=== PATIENT | female | born 1990 | race African-American/Black ===

== ENCOUNTER 2021-05-17 21:39 | Emergency (ER) | payer BC, SELFPAY ==
[2021-05-17 21:41] VITALS: BP 119/83; PULSE 98; RESP 18; TEMP 36.7; O2SAT 99
--- NOTE | 2021-05-17 22:02 | ED.GENADULT ---
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 Patient states symptoms began approximately 30 minutes ago with light vaginal bleeding she states she is approximately 9 weeks and is followed by Dr. Colton Morales in [place] states she had an ultrasound last week at [facility] that showed intrauterine she denies any abdominal pain she denies any fevers or chills nausea vomiting or any other symptoms. Patient is G1, P0 patient states that bleeding occurred after sexual intercourse Related Data Allergies Allergy/AdvReac Type Severity Reaction Status Date / Time No Known Allergies Allergy Verified 05/17/21 21:53 Review of Systems Review of Systems: Gen.: Denies fevers or chills ENT: Denies congestion Respiratory: Denies shortness of breath CV: Denies chest pain GI: Denies abdominal pain nausea, emesis or diarrhea see HPI Musculoskeletal: Denies back pain or muscle pain Neuro: Denies numbness, tingling, weakness or focal weakness Skin: Denies rash Except as documented, all other systems reviewed and negative [facility] Past Medical History Medical History (Updated 05/18/21 @ 00:17 by Noel Gardiner DO) Patient denies significant medical history Social History Social History (Updated 05/17/21 @ 22:04 by Noel Gardiner DO) Smoking status: Never smoker Exam Narrative: APPEARANCE: No acute distress, nontoxic, resting in bed EYES: EOMI HEENT: Normocephalic, atraumatic, OMM RESPIRATORY: No respiratory distress Clear to auscultation bilaterally with no rhonchi wheezing or rales. CARDIOVASCULAR: Regular rate and rhythm without murmurs rubs or gallops. ABDOMINAL: Soft, nontender, nondistended, no rebound or guarding : Normal external exam minimal amount of maroon blood in vaginal canal cervix is closed MUSCULOSKELETAl: Moves all extremities. No clubbing, cyanosis or edema. NEURO: Awake and alert. Following commands, speech normal, no focal deficits SKIN:: Warm, dry. 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 Discussed need for follow-up with primary care, proper use of medication, and reasons to return to the emergency department. Patient understands and agrees to current treatment plan Vital Signs Vital signs: Vital Signs Temperature 98.0 F 05/17/21 21:41 Pulse Rate 98 05/17/21 21:41 Respiratory Rate 18 05/17/21 21:41 Blood Pressure 119/83 05/17/21 21:41 Pulse Oximetry 99 05/17/21 21:41 Temperature 98.0 F 05/17/21 21:41 Pulse Rate 98 05/17/21 21:41 Respiratory Rate 18 05/17/21 21:41 Blood Pressure 119/83 05/17/21 21:41 Pulse Oximetry 99 05/17/21 21:41 Medical Decision Making Vital Signs Vital Signs: Vital Signs Temperature 98.0 F 05/17/21 21:41 Pulse Rate 98 05/17/21 21:41 Respiratory Rate 18 05/17/21 21:41 Blood Pressure 119/83 05/17/21 21:41 Pulse Oximetry 99 05/17/21 21:41 Temperature 98.0 F 05/17/21 21:41 Pulse Rate 98 05/17/21 21:41 Respiratory Rate 18 05/17/21 21:41 Blood Pressure 119/83 05/17/21 21:41 Pulse Oximetry 99 05/17/21 21:41 Lab Data Result diagrams: 05/17/21 22:15 Labs: Lab Results 05/17/21 05/17/21 05/17/21 Range/Units 22:15 22:15 22:15 WBC 6.4 (4.5-10.0) K/mm3 RBC 4.25 (4.2-5.4) M/mm3 Hgb 12.7 (12.0-15.0) g/dL Hct 38.3 (37.0-47.0) % MCV 90.1 (80-100) fl MCH 29.9 (26-34) pg MCHC 33.2 (32-36) g/dl RDW 12.5 (11.5-14.5) % Plt Count 309 (150-375) k/mm3 MPV 9.7 (7.4-10.4) fl [place]
[2021-05-17 22:20] LABS: Basophils Percent Auto 0.3 % (0.2-1.2); Eosinophils Absolute Auto 0.1 K/mm3 (0-0.3); Eosinophils Percent Auto 1.6 % (0-4.4); Hematocrit 38.3 % (37.0-47.0); Hemoglobin 12.7 g/dL (12.0-15.0); Immature Granulocyte Absolute 0.02 K/mm3 (0.00-0.031); Immature Granulocyte Percent A 0.3 % (0-0.5); Lymphocytes Absolute Auto 1.77 K/mm3 (0.9-3.2); Lymphocytes Percent Auto 27.7 % (18.3-44.2); Mean Corpuscular HGB Conc 33.2 g/dl (32-36); Mean Corpuscular Hemoglobin 29.9 pg (26-34); Mean Corpuscular Volume 90.1 fl (80-100); Mean Platelet Volume 9.7 fl (7.4-10.4); Monocytes Absolute Auto 0.5 K/mm3 (0.1-0.6); Monocytes Percent Auto 7.7 % (2.6-8.5); Neutrophils Percent Auto 62.4 % (45.5-73.1); Platelet Count Result 309 k/mm3 (150-375); Red Blood Count 4.25 M/mm3 (4.2-5.4); Red Cell Distribution Width 12.5 % (11.5-14.5); White Blood Count 6.4 K/mm3 (4.5-10.0)
== END 2021-05-18 00:15 | disposition home or self-care (01) ==
PROVIDERS: Emergency Provider Emergency Medicine
DX: O20.0 Threatened abortion (principal); Z3A.09 9 weeks gestation of pregnancy
CPT/HCPCS: 36415; 84702; 85025; 85461; 99283

== ENCOUNTER 2021-10-23 10:55 | Outpatient (CLI) | payer BC, SELFPAY ==
[2021-10-23 11:22] VITALS: BP 102/71; PULSE 92
[2021-10-23 11:56] LABS: Appearance Urine Clear (Clear); Bilirubin Urine Negative (Negative); Blood Urine Negative (Negative); Color Urine Yellow (Yellow); Glucose Urine UA Negative (Negative); Ketones Urine Negative (Negative); Leukocyte Esterase Ur 2+ LEU/UL (Negative); Nitrate Urine Negative (Negative); Protein Urine 1+ mg/dL (Negative)
[2021-10-23 12:05] LABS: Bacteria Urine Trace /hpf; Mucus Urine Rare /lpf; Squamous Epithelial Cell Urine Moderate /hpf (Few); WBC Urine 16-20 /hpf
[2021-10-23 12:08] LABS: Add Urine Microscopic? YES
== END 2021-10-23 12:25 | disposition home or self-care (01) ==
LOC: ANHOBOP 11:00 → ANHOBPP 10-28 06:22
PROVIDERS: Visit Provider Obstetrics & Gynecology
DX: O41.8X90 Other specified disorders of amniotic fluid and membranes, unspecified trimester, not applicable or unspecified (principal)
CPT/HCPCS: 59025; 81001; 84112; 87086; 99199

== ENCOUNTER 2023-04-21 11:52 | Emergency (ER) | payer BC, SELFPAY ==
[2023-04-21 12:10] VITALS: BP 119/64; PULSE 106; RESP 20; TEMP 36.9; O2SAT 100
--- NOTE | 2023-04-21 13:25 | ED.DIZZY ---
HPI - Dizziness General Chief Complaint: Dizziness <ROSSY El Last Filed: 04/21/23 13:44> Stated Complaint: dizziness, 23 weeks <ROSSY El Last Filed: 04/21/23 13:44> Time Seen by Provider: 04/21/23 13:25 <ROSSY El Last Filed: 04/21/23 13:44> Focused HPI: Patient is a 33-year-old female who presents the ED with report of dizziness. Patient reports this is been a chronic ongoing issue for her, however disease became worse this morning. Dizziness to be clearly elicited with movement/walking. Describes it as though things are moving around her, but also that she feels faint and lightheaded, near syncopal. She denies any actual syncopal episodes. Reports mild headache currently, denies vision changes. Has never been diagnosed with vertigo before. Denies focal weakness or numbness. Patient is and currently 23 weeks . Denies abdominal pain, vaginal bleeding. OBGYN is with [facility] [place]. GENERAL: Well-appearing, well-nourished, and in no acute distress. HEAD: Normocephalic, atraumatic. EYES: PERRL/EOMI, conjunctiva clear. No appreciable nystagmus. ENT: TMs clear bilaterally. No cerumen impaction. CHEST: Clear to auscultation. ?No respiratory distress. HEART: Regular rate and rhythm.? ABD: Uterus gravid, nontender. NEURO: ?Alert and oriented x3. No focal deficits. Patient screened in triage and initial orders placed.? ?Additional care and disposition to be based upon?diagnostic testing and treatment. <ROSSY El Last Filed: 04/21/23 13:44> Related Data Home Medications: Home Medications Medication Instructions Recorded Confirmed No Home Medications 04/21/23 04/21/23 <ROSSY El Last Filed: 04/21/23 13:44> Allergies/Adverse Reactions: Allergies Allergy/AdvReac Type Severity Reaction Status Date / Time No Known Allergies Allergy Verified 04/21/23 15:02 <ROSSY El Filed: 04/21/23 13:44> Review of Systems Review of Systems: All systems are reviewed and are negative unless stated otherwise in the HPI. <Allen Marin MD - Last Filed: 04/21/23 16:55> PMFSH Past Medical History Medical History: Medical History Patient denies significant medical history <Svetlana Pop PA-C - Last Filed: 04/21/23 13:44> Social History Social History: Social History Smoking status: Never smoker <Svetlana Pop PA-C - Last Filed: 04/21/23 13:44> Comments Denies any significant medical/surgical history. Denies any significant family history, denies any tobacco use, alcohol abuse or illicit drug use. <Allen Marin MD - Last Filed: 04/21/23 16:55> Exam Narrative: General: Alert, awake, afebrile, in no acute distress. HEENT: PERRL, no rhinorrhea, no post nasal drip, oropharynx clear. Neck: Trachea midline, no JVD, no lymphadenopathy. Cardiovascular: Regular rate and rhythm, no murmurs, rubs or gallops, no peripheral edema. Respiratory: Clear to auscultation bilaterally, no tachypnea, no wheezing, no rhonchi, no rubs, no respiratory distress. Abdomen: Gravid, nontender, nondistended, no rebound, no guarding, no peritoneal signs. Musculoskeletal: No joint swelling or deformity, normal muscle tone. Skin: No rashes or petechia, no signs of infection. Psychiatric: Alert and oriented, normal behavior and judgment for situation. Neurological: Alert and oriented to person, place, and time. Follows all commands. No focal deficits, speech is clear and fluent. <Allen Marin MD - Last Filed: 04/21/23 16:55> Course Vital Signs Vital signs: Vital Signs Temperature 98.4 F 04/21/23 12:10 Pulse Rate 106 H 04/21/23 12:10 Respiratory Rate 20 04/21/23 12:10 Blood Pressure 119/64 02
--- NOTE | 2023-04-21 13:28 | ECG_ITS ---
Measurements Intervals [place] Rate: 97 P: 45 MS: 148 QRS: 40 QRSD: 74 T: 17 QT: 328 QTc: 418 Interpretive Statements SINUS RHYTHM NONSPECIFIC T-WAVE ABNORMALITY NO PREVIOUS ECG AVAILABLE FOR COMPARISON Electronically Signed On 04-21-2023 15:22:13 CIS COORDINATOR by Bijal Dey M.D.
[2023-04-21] MEDS: MECLIZINE HCL 25 MG TABLET PO (13:40)
[2023-04-21 13:41] VITALS: BP 91/58; PULSE 108
[2023-04-21 13:42] VITALS: BP 101/64; PULSE 113
[2023-04-21 13:43] LABS: Basophils Percent Auto 0.3 % (0.2-1.2); Eosinophils Absolute Auto 0.1 K/mm3 (0-0.3); Eosinophils Percent Auto 1.3 % (0-4.4); Hematocrit 31.1 % (37.0-47.0); Hemoglobin 10.2 g/dL (12.0-15.0); Immature Granulocyte Absolute 0.05 K/mm3 (0.00-0.031); Immature Granulocyte Percent A 0.7 % (0-0.5); Lymphocytes Absolute Auto 1.26 K/mm3 (0.9-3.2); Mean Corpuscular HGB Conc 32.8 g/dl (32-36); Mean Corpuscular Volume 91.5 fl (80-100); Mean Platelet Volume 9.9 fl (7.4-10.4); Monocytes Absolute Auto 0.6 K/mm3 (0.1-0.6); Monocytes Percent Auto 7.9 % (2.6-8.5); Neutrophils Percent Auto 71.8 % (45.5-73.1); Platelet Count Result 265 k/mm3 (150-375); Red Cell Distribution Width 12.2 % (11.5-14.5)
[2023-04-21 13:56] LABS: Alanine Aminotransferase 16 U/L (6-35); Albumin Level 3.2 g/dL (3.5-5.1); Alkaline Phosphatase 68 U/L (38-126); Anion Gap 7 mmol/L (8-16); Aspartate Amino Transferase 22 U/L (14-36); Bilirubin,Total 0.4 mg/dL (0.2-1.3); Blood Urea Nitrogen 7 mg/dL (7-17); Calcium 9.5 mg/dL (8.4-10.2); Carbon Dioxide 19 mmol/L (22-30); Chloride 108 mmol/L (98-107); Estimated Glomerular Filt Rate > 60; Glucose 91 mg/dL (65-110); Potassium 3.7 mmol/L (3.4-5.0); Sodium 134 mmol/L (137-145)
[2023-04-21] MEDS: SODIUM CHLORIDE 0.9% IV 1,000 ML 999 ML IV CONT (14:57)
[2023-04-21 16:58] VITALS: BP 105/66; PULSE 89; RESP 15; O2SAT 100
== END 2023-04-21 16:59 | disposition home or self-care (01) ==
LOC: ANHED 16:50
PROVIDERS: Physician Assistant; Emergency Provider Emergency Medicine
DX: I95.1 Orthostatic hypotension (principal); R42 Dizziness and giddiness
CPT/HCPCS: 36415; 80053; 85025; 93005; 96360; 99283; A9270; J7030

== ENCOUNTER 2023-12-19 18:35 | Emergency (ER) | payer SELFPAY ==
--- NOTE | ~2023-12-19 | CT_ITS ---
EXAMINATION: CT abdomen pelvis wo con DATE: 12/19/2023 19:26 INDICATION: right flank pain TECHNIQUE: Computed tomography (CT) of the abdomen and pelvis was performed without intravenous contr ast. Automated exposure control and iterative reconstruction technique were employed. The dose-length product was 283.85 mGy-cm. COMPARISON: None. FINDINGS: Lower thorax: Unremarkable Liver: Normal. Biliary/Gallbladder: Gallbladder is normal. No bile duct dilation. Pancreas: No mass or duct dilation. Spleen: Normal. Adrenals:No mass. Kidneys: Multiple nonobstructing bilateral renal calculi. 5 mm calcification at the right UPJ/proxima l ureter. Mild right pelviectasis and caliectasis. No significant left hydronephrosis. GI tract: No small or large bowel dilation. Normal appendix. Mesentery/Peritoneum: No ascites, mass, or free air. Retroperitoneum: No mass. Pelvis: Normal uterus and bladder and right ovary. Left ovary not confidently visualized. 4 x 6 mm ca lcification in the deep left pelvis. Soft Tissues: Soft tissues and body wall unremarkable. Bones: No acute osseous finding. IMPRESSION: 5 mm right UPJ/proximal ureteral stone causing mild obstructive uropathy. 4 x 6 mm calcification in the deep left pelvis, the distal left ureter is poorly visualized but the l ack of hydronephrosis argues against this being a ureteral calcification. Reviewed, dictated and finalized at location K. IMPRESSION: 5 mm right UPJ/proximal ureteral stone causing mild obstructive uropathy. 4 x 6 mm calcification in the deep left pelvis, the distal left ureter is poorl y visualized but the lack of hydronephrosis argues against this being a uretera l calcification.
[2023-12-19 18:37] VITALS: BP 144/93; PULSE 78; RESP 18; TEMP 36.5; O2SAT 100
--- NOTE | 2023-12-19 19:12 | ED_ITS ---
HPI - Back Pain/Injury General Chief Complaint: Back Pain/Injury Stated Complaint: back pain Time Seen by Provider: 12/19/23 19:03 History of Present Illness HPI Narrative: 33-year-old otherwise healthy female presenting to the emergency room with right-sided flank pain intermittent for last 4 months. Patient states that she has been having it ever since she gave with a to her child. No complications during the procedure and she went home the next day. She states s he is having significant muscle cramps feeling in her high right-sided flank. Sometimes radiating to his right groin into her thigh. No history of kidney stones, no trauma or injury. She has tried lidocaine patches and Tylenol without any relief of her symptoms. Endorses some mild nausea but no vomiting, chest pain, shortness but no fever, chills. No urinary complaints such as hematuria, dysuria or vaginal bleeding or discharge. Related Data Allergies Allergy/AdvReac Type Severity Reaction Status Date / Time No Known Allergies Allergy Verified 12/19/23 18:40 Review of Systems Review of Systems: As reviewed above i PMFSH Past Medical History Medical History Patient denies significant medical history Social History Social History Smoking status: Never smoker Exam Narrative: GENERAL: [Well-appearing, well-nourished, and in no acute distress.] HEAD: [Normocephalic, atraumatic.] EYES: [PERRLA and EOMI.] ENT: Nares clear, no rhinorrhea or epistaxis. Mucous membranes moist. NECK: Supple. CHEST: [Clear to auscultation. No respiratory distress.] HEART: [Regular rate and rhythm]. No murmur heard. [Normal peripheral pulses.] ABDOMEN: [Soft, nondistended], [nontender], [No rigidity or guarding] right- sided CVA tenderness focally EXTREMITIES: Normal range of motion. [No edema.] positive straight leg raise on the right with internal rotation causing more pain SKIN: Warm, dry, no rash. NEURO: [No focal deficits]. Alert and oriented [x3.] PSYCH: [Normal mood and affect.] Course Vital Signs Vital signs: Vital Signs Temperature 36.5 C 12/19/23 18:37 Pulse Rate 78 12/19/23 18:37 Respiratory Rate 18 12/19/23 18:37 Blood Pressure 144/93 H 12/19/23 18:37 Pulse Oximetry 100 12/19/23 18:37 Oxygen Delivery Room Air 12/19/23 18:37 Temperature 36.5 C 12/19/23 18:37 Pulse Rate 78 12/19/23 21:30 Respiratory Rate 16 12/19/23 21:30 Blood Pressure 143/71 H 12/19/23 21:30 Pulse Oximetry 100 12/19/23 21:30 Oxygen Delivery Room Air 12/19/23 18:37 MDM - Back Pain/Injury MDM Narrative Medical decision making narrative: 33-year-old female coming in with right-sided flank pain. Intermittent for last 4 months. Tender to palpation on examination, vital signs reassuring, no urinary complaints. Flank pain sometimes radiates to her groin but she denies any dysuria, hematuria. No weakness in the limb, full strength and sensation throughout both arms and legs, no red flag signs such as paresthesias, saddle anesthesias, weakness. She does some mild nausea from the pain but no diarrhea, constipation, vomiting. Clinical she likely has musculoskeletal pain versus flank pain from a kidney stone versus less likely pyelonephritis or infectious process. No midline thoracic or lumbar spinal tenderness so do not suspect any kind of spinal pathology at this time. CT without contrast was obtained she was treated symptomatically with Dilaudid and Valium. Laboratory studies were obtained, urinalysis and urine test obtained. laboratory studies showed no leukocytosis or anemia. electrolytes all within normal limits, creatinine 1.10 but BUN normal. She is tolerating oral intake and well-hydrated. CPK negative. test negative. Urinalysis negative for infection. I independently reviewed the CT scan identified a UPJ stone. CT report by Radiology repeats a 5 mm right UPJ stone in the proximal ureter causing mild obstruction. is also some calcifications in the deep left pelvis which could be another stone versus other process but she is not having symptomatology here. Patient was informed of her kidney stone finding and plan of care going forward. Her pain is well controlled, symptoms are under control and I believe she is stable for outpatient follow-up with Urology. She will provide Flomax, Toradol and already has as needed oxycodone at home from her recent surgery. She was informed of return precautions and safe for discharge at this time Lab Data 12/19/23 19:49 12/19/23 19:49 Labs: Lab Results 12/19/23 12/19/23 12/19/23 Range/Units 19:49 20:54 20:55 WBC 7.3 (4.5-10.0) K/mm3 RBC 4.35 (4.2-5.4) M/mm3 Hgb 13.0 (12.0-15.0) g/dL Hct 39.2 (37.0-47.0) % MCV 90.1 (80-100) fl MCH 29.9 (26-34) pg MCHC 33.2 (32-36) g/dl RDW 13.6 (11.5-14.5) % Plt Count 274 (150-375) k/mm3 MPV 10.2 (7.4-10.4) fl Immature Gran % (Auto) 0.3 (0-0.5) % Neut % (Auto) 71.1 (45.5-73.1) % Lymph % (Auto) 18.7 (18.3-44.2) % [place] % (Auto) 8.3 (2.6-8.5) % Eos % (Auto) 1.2 (0-4.4) % Baso % (Auto) 0.4 (0.2-1.2) % Lymph # (Auto) 1.37 (0.9-3.2) K/mm3 [place] # (Auto) 0.6 (0.1-0.6) K/mm3 Eos # (Auto) 0.1 (0-0.3) K/mm3 Baso # (Auto) 0.0 (0.0-0.1) K/mm3 Abs Immat Gran (auto) 0.02 (0.00-0.031) K/mm3 Absolute Neuts (auto) 5.2 (1.3-6.7) K/mm3 Absolute Nucleated RBC 0.000 (0.0-0.012) K/mm3 Nucleated RBC % 0.0 (0.0-0.2) % Sodium 140 (137-145) mmol/L Potassium 3.9 (3.4-5.0) mmol/L Chloride 105 (98-107) mmol/L Carbon Dioxide 25 (22-30) mmol/L Anion Gap 10 (4-12) mmol/L BUN 15 D (7-17) mg/dL Creatinine 1.10 H (0.7-1.0) mg/dL Estim Creat Clear Calc Not Reportable Estimated GFR > 60 (59 - ) Glucose 82 (65-110) mg/dL Calcium 9.4 (8.4-10.2) mg/dL Magnesium 2.0 (1.6-2.3) mg/dL Total Creatine Kinase 76 (30-135) U/L Urine Color Yellow (Yellow) Urine Appearance Clear (Clear) Urine pH 8.0 (5.0-9.0) Ur Specific [place] 1.018 (1.001-1.035) Urine Protein Negative (Negative) mg/dL Urine Glucose (UA) Negative (Negative) mg/dL Urine Ketones Negative (Negative) mg/dL Ur Blood (Man) Non-hemolyzed trace H (Negative) Urine Nitrate Negative (Negative) Urine Bilirubin Negative (Negative) Urine Urobilinogen 1.0 (<2.0) mg/dL Leukocyte Esterase Rfl Trace H (Negative) TALI/UL Urine RBC 3-5 H (0-2) /hpf Urine WBC 0-5 (0-3) /hpf Ur Squamous Epith Cells Few (Few) /hpf Urine Bacteria None seen /hpf Urine Casts 0-2 POC Urine HCG, Qual Negative (Negative) Discharge Plan Discharge Clinical Impression: Obstruction of right ureteropelvic junction (UPJ) due to stone Patient Disposition: Home, Self-Care Condition: Stable Instructions: Antibiotic Form, Kidney Stones (ED), Flank Pain (ED) Additional Instructions: you do have a 5 mm stone in the right ureter/UPJ. with its size and migration it will likely pass on its own. If you have any intractable pain, nausea, burning with urination or any fevers please return to the emergency department. We have provided to urologist to follow-up with outpatient and provided medications for this. Prescriptions: New tamsulosin [Flomax] 0.4 mg capsule 0.4 mg PO DAILY Qty: 20 0RF ketorolac 10 mg tablet 10 mg PO Q8H PRN (Reason: pain) 5 Days Qty: 20 0RF Rx Instructions: maximum total duration of 5 days from all oral, intranasal, or parenteral formulations Follow-up/Referrals: PHYSICIAN NOT ON STAFF,NONSTAFF [Primary Care Provider] - Summer Rivera MD [Physician] - 1 Week ( Right KALPANA dejesus) Time of Disposition: 21:45
[2023-12-19] MEDS: HYDROcodone/acetaminophen (*CRX) 5-325 MG TABLET 1 TAB PO (19:52)
[2023-12-19] MEDS: diazePAM (*CRX) 5 MG TABLET PO (19:52)
[2023-12-19 19:57] LABS: Basophils Percent Auto 0.4 % (0.2-1.2); Eosinophils Absolute Auto 0.1 K/mm3 (0-0.3); Eosinophils Percent Auto 1.2 % (0-4.4); Hematocrit 39.2 % (37.0-47.0); Immature Granulocyte Absolute 0.02 K/mm3 (0.00-0.031); Immature Granulocyte Percent A 0.3 % (0-0.5); Lymphocytes Absolute Auto 1.37 K/mm3 (0.9-3.2); Lymphocytes Percent Auto 18.7 % (18.3-44.2); Mean Corpuscular HGB Conc 33.2 g/dl (32-36); Mean Corpuscular Hemoglobin 29.9 pg (26-34); Mean Corpuscular Volume 90.1 fl (80-100); Mean Platelet Volume 10.2 fl (7.4-10.4); Monocytes Absolute Auto 0.6 K/mm3 (0.1-0.6); Monocytes Percent Auto 8.3 % (2.6-8.5); Neutrophils Absolute Auto 5.2 K/mm3 (1.3-6.7); Neutrophils Percent Auto 71.1 % (45.5-73.1); Platelet Count Result 274 k/mm3 (150-375); Red Blood Count 4.35 M/mm3 (4.2-5.4); Red Cell Distribution Width 13.6 % (11.5-14.5); White Blood Count 7.3 K/mm3 (4.5-10.0)
[2023-12-19 20:13] LABS: Anion Gap 10 mmol/L (4-12); Blood Urea Nitrogen 15 mg/dL (7-17); Calcium 9.4 mg/dL (8.4-10.2); Carbon Dioxide 25 mmol/L (22-30); Chloride 105 mmol/L (98-107); Creatine Kinase 76 U/L (30-135); Estimated Glomerular Filt Rate > 60; Glucose 82 mg/dL (65-110); Potassium 3.9 mmol/L (3.4-5.0); Sodium 140 mmol/L (137-145)
[2023-12-19 20:57] LABS: BEDSIDEPREGUCG Negative (Negative)
[2023-12-19 21:08] LABS: Add Urine Microscopic? YES; Appearance Urine Clear (Clear); Bacteria Urine None Seen /hpf; Bilirubin Urine Negative (Negative); Blood Urine Non-Hemolyzed Trace (Negative); Color Urine Yellow (Yellow); Glucose Urine UA Negative (Negative); Ketones Urine Negative (Negative); Leukocyte Esterase Ur Trace LEU/UL (Negative); Nitrate Urine Negative (Negative); Non Pathogenic Casts 0-2; Protein Urine Negative (Negative); Specific Grav Ur 1.018 (1.001-1.035); Squamous Epithelial Cell Urine Few /hpf (Few); WBC Urine 0-5 /hpf (0-3)
[2023-12-19 21:30] VITALS: BP 143/71; PULSE 78; RESP 16; O2SAT 100
== END 2023-12-19 22:32 | disposition home or self-care (01) ==
PROVIDERS: Emergency Provider Student in an Organized Health Care Education/Training Program
DX: N13.9 Obstructive and reflux uropathy, unspecified (principal); N20.1 Calculus of ureter
CPT/HCPCS: 36415; 74176; 80048; 81001; 81025; 82550; 83735; 85025; 99284; A9270

== ENCOUNTER 2024-06-26 16:45 | Emergency (ER) | payer OTHER, SELFPAY ==
--- NOTE | ~2024-06-26 | CT_ITS ---
EXAMINATION: CT abdomen pelvis wo con DATE: 06/26/2024 18:25 INDICATION: flank pain, hematuria TECHNIQUE: Computed tomography (CT) of the abdomen and pelvis was performed without intravenous contr ast. Automated exposure control and iterative reconstruction technique were employed. The dose-length product was 171.44 mGy-cm. COMPARISON: 12/19/2023. FINDINGS: Lower thorax: Unremarkable Liver: Normal. Biliary/Gallbladder: Gallbladder is normal. No bile duct dilation. Pancreas: No mass or duct dilation. Spleen: Normal. Adrenals:No mass. Kidneys: Inflammatory change at the left renal pelvis. 10 x 6 mm calcification in the left renal pelv is. Simple left renal cyst. Multiple additional nonobstructing calculi are present bilaterally. Mild left pelviectasis and caliectasis. No right hydronephrosis. GI tract: No small or large bowel dilation. Normal appendix. Diverticulosis without diverticulitis. Mesentery/Peritoneum: No ascites, mass, or free air. Retroperitoneum: No mass. Pelvis: Pelvic organs are within normal limits. Soft Tissues: Soft tissues and body wall unremarkable. Bones: No acute osseous finding. IMPRESSION: 10 x 6 mm stone in the left renal pelvis causing mild obstructive uropathy. Reviewed, dictated and finalized at location K.
[2024-06-26 16:46] VITALS: BP 134/88; PULSE 69; RESP 16; TEMP 36.4; O2SAT 100
--- OUTSIDE RECORDS SUMMARY | 2024-06-26 16:48 | XMS_ITS | Data Portability ---
Author Organization YENI Harpal JOHNSONlashon Luong Address [address] [facility] [place] [address] Care Team Providers Care Master Police Detective Name Role Phone CHATO TOPETE Primary Care Provider [phone] Assessment Encounter Date Assessment Date Assessment LastModified by Organization Details LastModified Time 05/06/2021 05/06/2021 31yo at 7w3d by LMP 03/15/21 (RADHA 12/20/21) [facility] 05/06/2021 16:57:30 Plan of Treatment Reminders Order Date Submit Date Provider Last Modified By Organization Details Last Modified Time Details Appointments None recorded. Lab HCG, intact + beta subunit, quant, serum or plasma 2021 022 [place] [address] [facility], [address] [place] [address], [address], [place], [address], 16:54:21 abo group + rh type, blood 2021 022 [place] [address] [facility], [address] [place] [address], [address], [place], [address], 16:54:21 CBC w/ auto diff 2021 022 [place] [address] [facility], [address] [place] [address], [address], [place], [address], 16:54:21 CBC w/ auto diff 2020 [facility] [address], [address], [place], [address], 15:08:41 TSH + free T4, serum 2020 [facility] [address], [address], [place], [address], 15:08:40 prolactin , serum 2020 [facility] [address], [address], [place], [address], 15:08:43 ferritin, serum or plasma 2020 021 [facility] [address], [address], [place], [address], 15:08:47 FSH (follicle -stimulat ing hormone), serum 2020 021 [facility] [address], [address], [place], [address], 15:08:43 testoster one, total, serum 2020 021 [facility] [address], [address], [place], [address], 15:08:42 17-hydrox yprogeste ALEA [place], serum 2020 [facility] [address], [address], [place], [address], 15:08:45 HIV 1+2 AB + HIV 1 p24 Ag, qualitati ve immunoass ay, serum 2020 021 [facility], [address], [address], [place], [address], 15:08:46 RPR (rapid plasma reagin), serum 2020 K[place]IE [facility], [address], [address], [place], [address], 15:08:44 HBsAg (hepatiti s B surface Ag), EIA, serum 2020 [facility], [address], [address], [place], [address], 15:08:48 hepatitis C Ab, signal-to -cutoff, serum or plasma 2020 [facility], [address], [address], [place], [address], 15:08:46 cytology report, thin prep, smear or scraping, cervical or vaginal 2020 [facility], [address], [address], [place], [address], 15:10:53 progester one, serum 2020 [facility], [address], [address], [place], [address], 08:16:11 test, urine 2020 [email or web address] In-Office Order, Internal Use Only DO Not Attach Compendium DO Not Attach Compendium, Do Not Delete/merge, [id number] 14:17:07 urinalysi s, dipstick 2020 021 [email or web address] In-Office Order, Internal Use Only DO Not Attach Compendium DO Not Attach Compendium, Do Not Delete/merge, [id number] 14:17:07 bacterial vaginosis + vaginitis panel, vaginal 2020 021 [place] [facility], [address] [facility], [address], [place], [address], 05:10:28 Referral None recorded. Procedures None recorded. Surgeries None recorded. Imaging US, obstetric , 1st trimester - Dating/vi ability US 2021 022 [email or web address] Not available 17:56:09 Medication Orders None recorded. Patient TargetsNo targets recorded. Patient Instructions Encounter Date Encounter Id Patient Instructions Last Modified By Organization Details Last Modified Time 08/07/2020 [id number] infertility: care instructions Not available 08/07/2020 14:17:07 08/16/2020 [id number] infertility: care instructions Not available 08/16/2020 15:04:03 09/05/2020 [id number] infertility: care instructions dengeljohn Not available 09/07/2020 08:42:43 Please obtain copy of your 's semen analysis. Results and plan of care will be called to you. [email or web address] Not available 09/07/2020 08:42:35 Reason for Referral None Reported. Results Created Date Observation Date Name Description Value Unit Range Abnormal Flag Note LastModifiedBy Organization Detail LastModifiedTime 08/08/1908/07/2020 urina lysis , dipst ick Leukocytes Trace Not Available In-Offi ce Order Internal Use Only DO Not Attach Compendium DO Not Attach Compendium, Do Not Delete/merge, [id number] 08/07/2020 12:59:00 08/08/1908/07/2020 urina lysis , dipst ick Nitrite negati ve Not Available In-Office Order Internal Use Only DO Not Attach Compendium DO Not Attach Compendium, Do Not Delete/merge, [id number] 08/07/2020 12:59:00 08/08/1908/07/2020 urina lysis , dipst ick Urobilinogen 1 Not Available In-Of fice Order Internal Use Only DO Not Attach Compendium DO Not Attach Compendium, Do Not Delete/merge, 08/07/2020 12:59:00 08/08/19 21 08/07/2020 urina lysis , dipst ick Protein 30 Not Available In-Office Order Internal Use Only DO Not Attach Compendium DO Not Attach Compendium, Do Not Delete/merge, 08/07/2020 12:59:00 08/08/19 21 08/07/2020 urina lysis , dipst ick pH 8.0 Not Available In-Office Order Internal Use Only DO Not Attach Compendium DO Not Attach Compendium, Do Not Delete/merge, 08/07/2020 12:59:00 08/08/19 21 08/07/2020 urina lysis , dipst ick Blood Non-He molyze d: Trace Not Available In-Office Order Internal Use Only DO Not Attach Compendium DO Not Attach Compendium, Do Not Delete/merge, 08/07/2020 12:59:00 08/08/19 21 08/07/2020 urina lysis , dipst ick Specific [place] 1.025 Not Available In-Off ice Order Internal Use Only DO Not Attach Compendium DO Not Attach Compendium, Do Not Delete/merge, 08/07/2020 12:59:00 08/08/19 21 08/07/2020 urina lysis , dipst ick Ketone Negati ve Not Available In-Office Order Internal Use Only DO Not Attach Compendium DO Not Attach Compendium, Do Not Delete/merge, 08/07/2020 12:59:00 08/08/19 21 08/07/2020 urina lysis , dipst ick Bilirubin Negati ve Not Available In-Office Order Internal Use Only DO Not Attach Compendium DO Not Attach Compendium, Do Not Delete/merge, 08/07/2020 12:59:00 08/08/19 21 08/07/2020 urina lysis , dipst ick Glucose Negati ve Not Available In-Office Order Internal Use Only DO Not Attach Compendium DO Not Attach Compendium, Do Not Delete/merge, [id number] 08/07/2020 12:59:00 08/08/19 21 08/07/2020 urina lysis , dipst ick Appearance Clear Not Available In-Offi ce Order Internal Use Only DO Not Attach Compendium DO Not Attach Compendium, Do Not Delete/merge, [id number] 08/07/2020 12:59:00 08/08/19 21 08/07/2020 urina lysis , dipst ick Color Yellow Not Available In-Office Order Internal Use Only DO Not Attach Compendium DO Not Attach Compendium, Do Not Delete/merge, [id number] 08/07/2020 12:59:00 08/08/19 21 08/07/2020 pregn chelsea test, urine HCG negati ve Not Available In-Office Order Internal Use Only DO Not Attach Compendium DO Not Attach Compendium, Do Not Delete/merge, [id number] 08/07/2020 12:59:07 08/09/19 21 08/14/2020 bacte rial vagin osis + vagin itis panel , vagin al atopobium vaginae High - 2 score abnormal Not Available [facility] (Lab) [address] [place], [address], 08/14/2020 05:10:28 08/09/19 21 08/14/2020 bacte rial vagin osis + vagin itis panel , vagin al bvab 2 Low - 0 score Not Available [facility] (Lab) [address] [place], [address], 08/14/2020 05:10:28 08/09/19 21 08/14/2020 bacte rial vagin osis + vagin itis panel , vagin al megasphaera 1 Low - 0 score Calcu late total score by reji coleman the 3 indiv idual bacte rial vagin osis (BV) marke r score s toget her. Total score is inter prete d as follo ws: Total score 0-1: Indic ates the absen ce of BV. Total score 2: Indet ermin ate for BV. Addit ional clini zoila data shoul d be evalu ated to estab tomasz a diagn osis. Total score 3-6: Indic ates the prese nce of BV. . This test was devel oped and its perfo rmanc e jerald cteri stics deter mined by [facility]. It has not been clear ed or appro lupis by the Food and Drug Admin istra tion. Not Available [facility] (Lab) [address] [place], [address], 08/14/2020 05:10:28 08/09/19 21 08/14/2020 bacte rial vagin osis + vagin itis panel , vagin al sheri albicans, TIFFANIE Positi ve negati ve abnormal Not Available [facility] (Lab) [address] [facility], [place], [address], 08/14/2020 05:10:28 08/09/19 21 08/14/2020 bacte rial vagin osis + vagin itis panel , vagin al sheri glabrata, TIFFANIE Negati ve negati ve Not Available [facility] (Lab) [address] [facility], [place], [address], 08/14/2020 05:10:28 08/09/19 21 08/14/2020 bacte rial vagin osis + vagin itis panel , vagin al trich vag by TIFFANIE Negati ve negati ve Not Available [facility] (Lab) [address] [facility], [place], [address], 08/14/2020 05:10:28 08/09/19 21 08/14/2020 bacte rial vagin osis + vagin itis panel , vagin al chlamydia trachomatis, TIFFANIE Negati ve negati ve Not Available [facility] (Lab) [address] [place], [address], 08/14/2020 05:10:28 08/09/19 21 08/14/2020 bacte rial vagin osis + vagin itis panel , vagin al neisseria gonorrhoeae, TIFFANIE Negati ve negati ve Not Available [facility] (Lab) [address] [place], [address], 08/14/2020 05:10:28 08/17/19 21 08/17/2020 proge stero ne, serum progesterone 0.2 NG/mL Folli cular phase 0.1 - 0.9 Lutea l phase 1.8 - 23.9 Ovula tion phase 0.1 - 12.0 Pregn ant First trime ster 11.0 - 44.3 Secon d trime ster 25.4 - 83.3 Third trime ster 58.7 - 214.0 Postm enopa usal 0.0 - 0.1 Not Available [facility] (Lab) [address] [facility], [place], [address], 08/17/2020 08:16:11 09/06/19 21 09/06/2020 IGP, RFX APTIM A HPV ASCU diagnosis: Commen t NEGLAYNE DEVYN FOR INTRA EPITH ELIAL LESIO N OR SYLVESTER KELLY . Not Available [facility] ([facility]) [address] [facility], [place], [address], 09/06/2020 15:10:53 09/06/19 21 09/06/2020 IGP, RFX APTIM A HPV ASCU specimen adequacy: Commen t Satis facto ry for evalu ation . Endoc ervic al and/o r squam ous metap lasti c cells (endo cervi zoila compo nent) are prese nt. Not Available [facility] ([facility]) [address] [facility], [place], [address], 09/06/2020 15:10:53 09/06/19 21 09/06/2020 IGP, RFX APTIM A HPV ASCU clinician provided ICD10: Commen t Z12.4 Not Available [facility] ([facility]) [address] [facility], [place], [address], 09/06/2020 15:10:53 09/06/19 21 09/06/2020 IGP, RFX APTIM A HPV ASCU performed by: Nancy Garcia th, Cytot jovan schneider (ASCP ) Not Available [facility] ([facility]) [address] [place], [address], 09/06/2020 15:10:53 09/06/19 21 09/06/2020 IGP, RFX APTIM A HPV ASCU . . Not Available [facility] ([facility]) [address] [place], [address], 09/06/2020 15:10:53 09/06/19 21 09/06/2020 IGP, RFX APTIM A HPV ASCU note: Nancy schneider The Pap smear is a scree suad test desig brian to aid in the detec tion of venu ligna nt and malig nant condi tions of the uteri ne cervi x. It is not a diagn ostic proce dure and shoul d not be used as the sole means of detec ting cervi zoila cance r. Both false -posi tive and false -nega tive repor ts do occur . Not Available [facility] ([facility]) [address] [place], [address], 09/06/2020 15:10:53 09/06/19 21 09/06/2020 IGP, RFX APTIM A HPV ASCU test methodology: Nancy schneider This liqui d based ThinP rep(R ) pap test was scree brian with the use of an image guide d systzelda m. Not Available [facility] ([facility]) [address] [place], [address], 09/06/2020 15:10:53 09/06/19 21 09/06/2020 IGP, RFX APTIM A HPV ASCU . Nancy schneider The HPV DNA refle x crite kyle were not met with this speci men resul t there fore, no HPV testi ng was perfo rmed. Not Available [facility] ([facility]) [address] [facility], [place], [address], 09/06/2020 15:10:53 09/06/1909/06/2020 TSH+F REE T4 TSH 1.050 uIU/m L 0.450- 4.500 Not Available [facility] ([facility]) [address] [facility], [place], [address], 09/11/2020 15:08:40 09/06/19 21 09/06/2020 TSH+F REE T4 T4,free(dire ct) 1.13 NG/dL 0.82-1 .77 Not Available [facility] ([facility]) [address] [facility], [place], [address], 09/11/2020 15:08:40 09/06/19 21 09/06/2020 CBC WITH DIFFE RENTI AL/PL ATELE T WBC 6.8 x10e3 /uL 3.4-10 .8 Not Available [facility] ([facility]) [address] [facility], [place], [address], 09/11/2020 15:08:41 09/06/1909/06/2020 CBC WITH DIFFE RENTI AL/PL ATELE T RBC 4.26 x10e6 /uL 3.77-5 .28 Not Available [facility] ([facility]) [address] [place], [address], 09/11/2020 15:08:41 09/06/1909/06/2020 CBC WITH DIFFE RENTI AL/PL ATELE T hemoglobin 12.6 g/dL 11.1-1 5.9 Not Available [facility] ([facility]) [address] [place], [address], 09/11/2020 15:08:41 09/06/19 21 09/06/2020 CBC WITH DIFFE RENTI AL/PL ATELE T hematocrit 38.3 % 34.0-4 6.6 Not Available [facility] ([facility]) [address] [facility], [place], [address], 09/11/2020 15:08:41 09/06/19 21 09/06/2020 CBC WITH DIFFE RENTI AL/PL ATELE T MCV 90 fL 79-97 Not Available [facility] ([facility]) [address] [facility], [place], [address], 09/11/2020 15:08:41 09/06/19 21 09/06/2020 CBC WITH DIFFE RENTI AL/PL ATELE T MCH 29.6 pg 26.6-3 3.0 Not Available [facility] ([facility]) [address] [facility], [place], [address], 09/11/2020 15:08:41 09/06/19 21 09/06/2020 CBC WITH DIFFE RENTI AL/PL ATELE T MCHC 32.9 g/dL 31.5-3 5.7 Not Available [facility] ([facility]) [address] [facility], [place], [address], 09/11/2020 15:08:41 09/06/19 21 09/06/2020 CBC WITH DIFFE RENTI AL/PL ATELE T RDW 12.6 % 11.7-1 5.4 Not Available [facility] ([facility]) [address] [facility], [place], [address], 09/11/2020 15:08:41 09/06/19 21 09/06/2020 CBC WITH DIFFE RENTI AL/PL ATELE T platelets 331 x10e3 /uL 150-45 0 Not Available [facility] ([facility]) [address] [place], [address], 09/11/2020 15:08:41 09/06/19 21 09/06/2020 CBC WITH DIFFE RENTI AL/PL ATELE T neutrophils 49 % not estab. Not Available [facility] ([facility]) [address] [place], [address], 09/11/2020 15:08:41 09/06/19 21 09/06/2020 CBC WITH DIFFE RENTI AL/PL ATELE T lymphs 41 % not estab. Not Available [facility] ([facility]) [address] [facility], [place], [address], 09/11/2020 15:08:41 09/06/19 21 09/06/2020 CBC WITH DIFFE RENTI AL/PL ATELE T monocytes 9 % not estab. Not Available [facility] ([facility]) [address] [facility], [place], [address], 09/11/2020 15:08:41 09/06/19 21 09/06/2020 CBC WITH DIFFE RENTI AL/PL ATELE T eos 1 % not estab. Not Available [facility] ([facility]) [address] [facility], [place], [address], 09/11/2020 15:08:41 09/06/19 21 09/06/2020 CBC WITH DIFFE RENTI AL/PL ATELE T basos 0 % not estab. Not Available [facility] ([facility]) [address] [facility], [place], [address], 09/11/2020 15:08:41 09/06/19 21 09/06/2020 CBC WITH DIFFE RENTI AL/PL ATELE T immature cells [employer] Not Available [facility] ([facility]) [address] [facility], [place], [address], 09/11/2020 15:08:41 09/06/19 21 09/06/2020 CBC WITH DIFFE RENTI AL/PL ATELE T neutrophils (absolute) 3.3 x10e3 /uL 1.4-7. 0 Not Available [facility] ([facility]) [address] [facility], [place], [address], 09/11/2020 15:08:41 09/06/19 21 09/06/2020 CBC WITH DIFFE RENTI AL/PL ATELE T lymphs (absolute) 2.8 x10e3 /uL 0.7-3. 1 Not Available [facility] ([facility]) [address] [facility], [place], [address], 09/11/2020 15:08:41 09/06/19 21 09/06/2020 CBC WITH DIFFE RENTI AL/PL ATELE T monocytes(ab solute) 0.6 x10e3 /uL 0.1-0. 9 Not Available [facility] ([facility]) [address] [facility], [place], [address], 09/11/2020 15:08:41 09/06/19 21 09/06/2020 CBC WITH DIFFE RENTI AL/PL ATELE T eos (absolute) 0.1 x10e3 /uL 0.0-0. 4 Not Available [facility] ([facility]) [address] [facility], [place], [address], 09/11/2020 15:08:41 09/06/19 21 09/06/2020 CBC WITH DIFFE RENTI AL/PL ATELE T baso (absolute) 0.0 x10e3 /uL 0.0-0. 2 Not Available [facility] ([facility]) [address] [place], [address], 09/11/2020 15:08:41 09/06/19 21 09/06/2020 CBC WITH DIFFE RENTI AL/PL ATELE T immature granulocytes 0 % not estab. Not Available [facility] ([facility]) [address] [place], [address], 09/11/2020 15:08:41 09/06/19 21 09/06/2020 CBC WITH DIFFE RENTI AL/PL ATELE T immature grans (abs) 0.0 x10e3 /uL 0.0-0. 1 Not Available [facility] ([facility]) [address] [place], [address], 09/11/2020 15:08:41 09/06/19 21 09/06/2020 CBC WITH DIFFE RENTI AL/PL ATELE T NRBC [employer] Not Available [facility] ([facility]) [address] [facility], [place], [address], 09/11/2020 15:08:41 09/06/19 21 09/06/2020 CBC WITH DIFFE RENTI AL/PL ATELE T hematology comments: [employer] Not Available [facility] ([facility]) [address] [facility], [place], [address], 09/11/2020 15:08:41 09/06/19 21 09/06/2020 TESTO STERO NE, SERUM testosterone , serum 56 NG/dL Not Available [facility] ([facility]) [address] [place], [address], 09/11/2020 15:08:42 09/06/19 21 09/06/2020 FSH, SERUM FSH 6.7 mIU/m L Adult Femal e: Folli cular phase 3.5 - 12.5 Ovula tion phase 4.7 - 21.5 Lutea l phase 1.7 - 7.7 Postm enopa usal 25.8 - 134.8 Not Available [facility] ([facility]) [address] [place], [address], 09/11/2020 15:08:43 09/06/1909/06/2020 PROLA CTIN prolactin 26.9 NG/mL 4.8-23 .3 above high normal Not Available [facility] ([facility]) [address] [place], [address], 09/11/2020 15:08:43 09/06/19 21 09/06/2020 RPR, RFX QN RPR/C ONFIR M TP RPR Non Reacti ve non reacti ve Not Available [facility] ([facility]) [address] [facility], [place], [address], 09/11/2020 15:08:44 09/06/19 21 09/11/2020 17-OH PROGE STERO NE LCMS 17-oh progesterone lcms 181 NG/dL Adult Femal e Folli cular 15 - 70 Lutea l 35 - 290 Not Available [facility] ([facility]) [address] [facility], [place], [address], 09/11/2020 15:08:45 09/06/19 21 09/06/2020 HIV AG/AB WITH REFLE X HIV screen 4TH generation wrfx Non Reacti ve non reacti ve Not Available [facility] ([facility]) [address] [facility], [place], [address], 09/11/2020 15:08:46 09/06/19 21 09/06/2020 HCV ANTIB ADRI hep C virus Ab <0.1 s/co_ ratio 0.0-0. 9 Negat devyn: < 0.8 Indet ermin ate: 0.8 - 0.9 Posit devyn: > 0.9 The CDC recom mends that a posit devyn HCV antib adri resul t be follo wed up with a HCV Nucle ic Acid Ampli ficat ion test (5507 13). Not Available [facility] ([facility]) [address] [facility], [place], [address], 09/11/2020 15:08:46 09/06/19 21 09/06/2020 YOLIE TIN, SERUM ferritin, serum 48 NG/mL 15-150 Not Available [facility] ([facility]) [address] [place], [address], 09/11/2020 15:08:47 09/06/19 21 09/06/2020 HBSAG SCREE N HBsAg screen Negati ve negati ve Not Available [facility] ([facility]) [address] [place], [address], 09/11/2020 15:08:48 09/21/1909/26/2020 MACRO PROLA CTIN prolactin 21.4 NG/mL Hook effec t or prozo ne effec t has been ruled out by perfo rming addit ional dilut ion rose sis on all prola ctin testi ng. This test was devel oped and its perfo rmanc e jerald cteri stics deter mined by [facility]. It has not been clear ed or appro lupis by the Food and Drug Admin istra tion. Refer ence Range : Femal e Child kianna and Adult s: 4.79 - 23.3 Ple ase note refer ence inter nikolas perkins e Not Available [facility] [address] [place] [address], [address], 09/26/2020 19:08:10 09/21/1909/26/2020 MACRO PROLA CTIN monomeric prolactin 17.1 NG/mL Macro prola ctin is repor shayy as a perce ntage of prola ctin as calcu lated : Macro prola ctin (as %) = ((Pro lacti n - Monom freddie Prola ctin) / Prola ctin) X 100. where Prola ctin is measu red in serum /plas ma (with out pre-t reatm ent). Monom freddie Prola ctin is measu red in serum /plas ma that has been pre-t reate d with polye thyle ne glyco l (PEG) to remov e Macro prola ctin. Monom freddie Prola ctin, the bioac tive form, is used to asses s true hyper prola ctine farnaz not due to the prese nce of Macro prola ctin. This test was devel oped and its perfo rmanc e jerald cteri stics deter mined by [facility]. It has not been clear ed or appro lupis by the Food and Drug Admin istra tion. Refer ence Range : Femal e Child kianna and Adult s: 4.79 - 23.3 Not Available [facility] [address] [facility], [place], [address], 09/26/2020 19:08:10 09/21/19 21 09/26/2020 MACRO PROLA CTIN percent macroprolact in 20 % Not Available [facility] [address] [facility], [place], [address], 09/26/2020 19:08:10 05/15/19 22 05/14/2021 US, obste tric, 1st trime ster EXAMIN ATION: OB ultras ound with transv aginal imagin g ACCESS ION: [id number] EXAM DATE/T DENNY: 05/15/19 10:56 AM REASON FOR EXAM: [id number] 002: Uncert ain viabil ity of pregna ncy LMP 03/15/19 COMPAR STEPH: No compar steph this pregna ncy. TECHNI QUE: Transv aginal ultras ound evalua tion of the pelvic conten ts was perfor med for analys is of graysc floridalma and color Dopple r imagin g charac terist ics. FINDIN GS: Single intrau terine pregna ncy identi fied. pole along with yolk sac identi fied. Averag e crown- rump length is 19.4 mm corres pondin g to 8 weeks 5 days gestat ional age. Cardia c activi ty is identi fied in the fetus and measur es 160 bpm. No eviden ce of implan tation hemorr crystal. Limite d evalua tion of amniot ic fluid and placen ta due to early gestat ional age. The right matern al ovary measur es 2.9 x 2.2 x 1.9 cm. The left matern al ovary measur es 2. 6 x 2.0 x 1.9 cm. Both ovarie s have normal graysc floridalma appear ance. No signif icant free fluid collec tions in the pelvis . ===== IMPRES SELAM: ===== 1. Single live intrau terine pregna ncy with estima shayy gestat ional age of 8 weeks and 5 days corres pondin g to date of delive ry 2021. 2. heart rate 168 bpm 3. No acute abnorm alitie s within limita tions of exam READ BY: JAMIE GIRON MD, TRACY Stephens Date: 2021 11:29 ob1 [facility] [address] [place], [address], 05/14/2021 14:15:31 Result Notes None recorded. Problems Name Problem SNOMED Code Status Onset Date Resolution Date Notes Provider Name and Address Organization Details Recorded Time Abdominal pain 04774383 Active CHELLE Gal[place], [place] - [facility] 5 13:17:00 Bacterial vaginosis 930608023 Active [place]HEL[place] [facility] 5 13:17:00 Urinary tract infectious disease 26173907 Active CHELLE [place] - [facility] 5 13:17:00 Problem Notes None recorded. Procedures Surgical History Date Name Laterality Status Provider Name and Address Organization Details Recorded Time 09/05/2020 Date of Last Pap Smear completed Eyal Aj [place] - [facility] 09/06/2020 15:21:44 Imaging Results Imaging Date Name Status LastModified by Organiz ation Details LastModified Time 05/14/2021 US, obstetric, 1st trimester completed [email or web address] [facility] [address] [place], [address], 05/14/2021 14:15:31 Procedure Notes None recorded. Medical Equipment None Reported. Allergies No known drug allergies Medications Name Sig Start Date Stop Date Status Note LastModified by Organization Details LastModified Time metronida zole 0.75 % (37.5 mg/5 gram) vaginal gel Insert 1 applicat orful every day by vaginal route at bedtime for 5 days. 10/10 completed Not Available Not Available Not Available Tubersol 5 tub. unit/0.1 mL intraderm al injection solution Inject 0.1 mL every week by intrader mal route. 04/03 completed read on 03/23/20 neg results Not Available Not Available Not Available metronida zole 250 mg tablet Take 1 tablet 3 times a day by oral route with meals for 7 days. 10/10 completed Not Available Not Available Not Available Diflucan 150 mg tablet Take 1 tablet by oral route. 09/05 completed Not Available Not Available Not Available metronida zole 500 mg tablet 10/10 completed Not Available Not Available Not Available ibuprofen 400 mg tablet 10/10 completed Not Available Not Available Not Available ibuprofen 600 mg tablet Take 1 tablet every 12 hours by oral route as needed for 30 days. 03/21 completed Not Available Not Available Not Available nitrofura ntoin monohydra te/macroc rystals 100 mg capsule Take 1 capsule every 12 hours by oral route for 7 days. 10/10 completed Not Available Not Available Not Available Vitals Date Recorded Body height Body mass index (BMI) Body weight Body temperature Systolic blood pressure Diastolic blood pressure Provider Name and Address Organization Details Last Updated DateTime 149.86 cm 24 kg/m2 41909.4 9 g 97.9 [degF] 100 mm[Hg] 60 mm[Hg] Nadira Beckham MA [facility] 1 12:52:24 Date Recorded Body height Body mass index (BMI) Body weight Systolic blood pressure Diastolic blood pressure Provider Name and Address Organization Details Last Updated DateTime 09/05/2020 149.86 cm 24.1 kg/m2 60493.92 g 92 mm[Hg] 66 mm[Hg] Katie Cruz MA [facility] 1 17:17:08 Date Recorded Body height Body mass index (BMI) Body weight Systolic blood pressure Diastolic blood pressure Provider Name and Address Organization Details Last Updated DateTime 05/06/2021 149.86 cm 24.2 kg/m2 96432.08 g 100 mm[Hg] 60 mm[Hg] Larissa Escobar MA [facility] 2 16:41:53 Social History Question Answer Notes LastModified by Organizat ion Details LastModified Time Tobacco Smoking Status Never Smoker Nadira Beckham MA null, [facility] 08/07/2020 12:56:11 What Is Your Level Of Alcohol Consumption? None [email or web address] Information not available 12/28/2014 Is Blood Transfusion Acceptable In An Emergency? Yes [email or web address] Information not available 12/28/2014 What Is Your Level Of Caffeine Consumption? Heavy Information not available 03/21/2020 How Much Tobacco Do You Chew? None [email or web address] Information not available 12/28/2014 In The 14 Days Before Symptom Onset, Have You Had Close Contact With A Laboratory-confir med COVID-19 While That Case Was Ill? No Information not available 08/07/2020 In The 14 Days Before Symptom Onset, Have You Had Close Contact With A Person Who Is Under Investigation For COVID-19 While That Person Was Ill? No Information not available 08/07/2020 Have You Been To An Area Known To Be High Risk For COVID-19? No Information not available 08/07/2020 Are You Currently Employed? Yes Information not available 12/28/2014 What Type Of Diet Are You Following? REGULAR [email or web address] Information not available 12/28/2014 Which Illicit Or Recreational Drugs Have You Used? No [email or web address] Information not available 12/28/2014 Do You Or Have You Ever Used E-cigarettes Or Vape? Never Used Electronic Cigarettes Information not available 03/21/2020 Education 12 [email or web address] Information no t available 12/28/2014 What Is The Highest Grade Or Level Of School You Have Completed Or The Highest Degree You Have Received? 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 No Information no t available 08/07/2020 Hard Of Hearing Or Deaf In One Or Both Ears? No Information not available 03/21/2020 Legally Blind In One Or Both Eyes? No Information no t available 03/21/2020 Live Alone Or With Others? With Others [email or web address] Information not available 12/28/2014 What Was The Date Of Your Most Recent Tobacco Screening? 08/07/2020 Information not available 08/07/2020 How Many Children Do You Have? 0 [email or web address] Information not available 12/28/2014 Performs Monthly Self-breast Exam? Yes Information no t available 12/28/2014 Do You Have Any Pets? Yes Dog Information not available 08/07/2020 Do You Use Protection During Sex? No Information not available 03/21/2020 What Is Your Relationship Status? Information not available 08/07/2020 Do You Use Your Seat Belt Or Car Seat Routinely? Yes Information not available 08/07/2020 Seat Belts Used Routinely Yes [email or web address] Information not available 12/28/2014 Are You Sexually Active? Yes [email or web address] Information not available 12/28/2014 Smoke Alarm In Home Yes Information not available 03/21/2020 Do You Have Smoke And Carbon Monoxide Detectors In Your Home? Yes Information not available 08/07/2020 Are You Passively Exposed To Smoke? No Information no t available 08/07/2020 Do You Or Have You Ever Used Smokeless Tobacco? Never Used Smokeless Tobacco Information not available 10/11/2019 How Much Tobacco Do You Smoke? No [email or web address] Information not available 12/17/2017 General Stress Level Medium [email or web address] Information not available 12/28/2014 Do You Use Any Illicit Or Recreational Drugs? No Information not available 09/05/2020 Do You Use Sunscreen Routinely? Yes Information not available 03/21/2020 Has Tobacco Cessation Counseling Been Provided? No Information not available 09/05/2020 On What Date Was Tobacco Cessation Counseling Provided? 10/11/2019 Information not available 10/11/2019 How Many Years Have You Smoked Tobacco? 0 Information not available 03/21/2020 Do You Or Have You Ever Used Any Other Forms Of Tobacco Or Nicotine? No Information not available 09/05/2020 Sex: Female Functional Status Question Answer Note LastModified by Organization D etails LastModified Time What is your exercise level? None [email or web address] Information not available 12/28/2014 Mental Status None recorded. Family History Relationship Description Onset Age of this Age Resolved Age Notes LastModified by Organization Details LastModified Time Maternal Grandmother Diabetes mellitus ALW @55 [email or web address] Not available 12/28/2014 11:29:02 Father No current problems or disability [email or web address] Not available 08/09 17:12:25 Mother No current problems or disability [email or web address] Not available 08/09 17:12:25 Medical History Condition Response Heart Problems N Other N Breast Cancer N Thyroid Problems N Kidney or Bladder Problems N GI Problems N Lung Disease N Depression N Acne N Breast Problem N Eating Disorder N Anemia N Anesthesia Complications N Headaches/Migraines N Anxiety Disorder N Diabetes N Ovarian Cancer N Blood Transfusions N Arthritis N Polyps N Infertility N Acid Reflux (GERD) N Cancer N Stroke N Abuse/Domestic Violence N Asthma N Endometriosis N High Cholesterol N Hepatitis N Heart Disease N Fibromyalgia N Pre-Eclampsia N Hypertension N Osteoporosis N Kidney Disease N Gynecological History Statement/Question Response Abnormal Pap N Flow Moderate On BCP's at Conception? N STIs/STDs N HPV Vaccine N Duration of Flow (days) 6 Age at Menarche 16 Current Control Method Age at First Child 2 Frequency of Cycle (Q days) 30 Sexually Active? Y Menses Monthly Yes Date of Last Pap Smear 09/05/2020 Sexual Problems? N LMP Definite Desired Control Method Unknown Obstetrics History GPAL:G 0 P 0 0 0 0 Type Value Multiple Births 0 Full Term 0 Induced 0 Spontaneous 0 Premature 0 Living 0 Ectopics 0 Total 0 Immunizations Vaccine Type Date Status Note Provider Nam e and Address Organization Details Recorded Time Influenza, split virus, quadrivalent, preservative 1 completed Em De [place] O [place], [place] [facility] 03/22/2020 09:50:42 Tdap 1 completed Em De [place] [facility] 03/22/2020 09:50:43 Hep A, adult 1 completed Em De [place] O [place] [facility] 03/22/2020 09:50:43 varicella 1 CHELLE Thacker[place] [facility] 03/22/2020 09:50:43 Influenza, split virus, quadrivalent, PF 2 completed Francesca [place] [facility] 04/23/2021 14:48:13 Past Encounters Encounter ID Performer Location Encounter Start Date Encounter Closed Date Diagnosis/Indication Diagnosis SNOMED-CT Code Diagnosis ICD10 Code Diagnosis Note [id number] Niurka Moore [facility] (LUNCH COUNTER MANAGER) [address] [place] [address]776[address] 9 12/28/2014 10:18:59 12/28/2014 18:10:41 Gynecologic examination 49142272 Z01.419 High risk sexual behavior 510743155 Z72.51 Current sex partner X 2 years denies STI's & is monogamus. Abdominal pain 93873356 R10.9 duration off & on since previous UTI to ER @ [facility], took all Rx. Bacterial vaginosis 4197 18328 N76.0 Urinary tr act infectious disease 14403784 N39.0 [id number] Niurka Moore [facility] (LUNCH COUNTER MANAGER) [address] [place] [address] 64382[address] 9 02/18/2016 11:47:25 02/22/2016 15:16:47 Gynecologic examination 60381857 Z01.419 High risk sexual behavior 536475477 Z72.51 Current sex partner X 2 years denies STI's & is monogamous . NO BCM condoms sometimes discussed un-wanted [id number] Niurka Moore [facility] (LUNCH COUNTER MANAGER) [address] [place] [address] 84213-386 9 10/08/2016 12:21:24 11/19/2016 08:34:26 Vaginal discharge 793993995 N89.8 Bacterial vaginosis 4197 83592 N76.0 [id number] Niurka Moore [facility] (LUNCH COUNTER MANAGER) [address] [place] [address] 56531-409 9 12/17/2017 11:34:38 12/18/2017 17:23:09 Gynecologic examination 95323170 Z01.419 Venereal d isease screening 309720979 Z11.3 with current sex partner X 5 years desires to r\o STI's. High risk sexual behavior 365372126 Z72.51 Current sex partner X 5 years denies STI's & is monogamous . NO BCM condoms sometimes discussed un-wanted ; & STI r\t inconsiste nt use of condoms. [id number] [facility] [address] [place], [place] [address] 9 01/06/2019 15:05:59 01/07/2019 09:03:19 Gynecologic examination 62896834 Z01.053 [id number] AMBER BILLSia [address] [place], [place] [address] 9 10/11/2019 11:52:10 10/12/2019 12:24:17 Pain in pelvis 83609290 R10.2 Pt reports that she has (over time) had minimal to inconsiste nt menses and mild pelvic pain-Furth er eval and management as outlined Increased frequency of urination 957704021 R35.0 -Pt reports inconsiste nt yet sx r/t urinary dysfunctio n-Further eval and management as outlined Irregular periods 729599 07 N92.6 -Pt reports several years of inconsiste nt menstrual cycle with only spotting at times-Furt her eval and management as outlined [id number] AMBER BILLS-C rosaia [address] [place] [address] 9 03/21/2020 13:58:15 03/22/2020 09:19:14 Immunization due 429443580 Z28.3 -Pt due for immunizati ons-Outlin ed immunizati ons at this time-Pt stable and without illness today Tuberculos is screening 062014361 Z11.1 2 step required for college/ ana program History an d physical examination, pre-employment 922665363 Z02.1 -PE complete-A dvised in routine care for current age-Pt stable Depression screening 171 374615 Z13.31 -Routine Recommende d screening -PHQ9 completed and filed; (-) [id number] Francesca MartinMike leeia [address] [place], [place] [phone] 03/28/2020 16:27:14 04/04/2020 14:45:00 [id number] AMBER BILLSia [address] [place], [place] [phone] 04/03/2020 13:56:44 04/04/2020 15:26:46 HIV screening 282912885 Z11.4 -Routine Recommende d screening 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 Uterus nml approx 7cm. Normal appearing myometrium . Bilateral ovaries with follicles. Possible PCOS -rule out infection with Nuswab Female infertility 12956 08 N97.9 -negative urine test today. -ordered semen analysis -US with possible PCOS. Discussed potential need for cycling with progestin and stimulatio n with letrazole. -obtain mid luteal phase progestero ne (possible LMP July 26) August 16 -F/U after testing completed. [id number] [address] [address] 08/16/2020 14:39:58 08/16/2020 15:05:11 Female infertility 1774600 N97.9 -negative urine test at last visit -ordered semen analysis -US with possible PCOS. Discussed potential need for cycling with progestin and stimulatio n with letrazole. -obtain mid luteal phase progestero ne (possible LMP July 26) August 16 -F/U after testing completed. [id number] [facility] [address] [place] [address] 09/05/2020 16:52:45 09/06/2020 09:45:20 Abnormal uterine bleeding 7585308418 9100 N93.9 --AUB-O, most likely PCOs with c/o hirsutism (along with bilateral ovarian follicles per u/s 11/2019--# of follicles not mentioned and u/s done at [facility] so films not accessible ) Screening for malignant neoplasm of cervix 821444051 Z12.4 --last Pap 12/17/17 so Pap performed today since due 12/2020 and c/o AUB Venereal d isease screening 039399747 Z11.3 Z72.51 --requests complete STD check except for ct-ng-tric h which Female inf ertility of anovulatory origin 822600709 N97.0 --partner had semen analysis [facility]--pt to get copy of results for us [id number] Francesca leeia [address] [place] [address] 04/23/2021 13:59:19 04/25/2021 08:39:14 [id number] Colton Morales [facility] (LUNCH COUNTER MANAGER) [address] [place] [address] 05/06/2021 16:28:07 05/07/2021 10:08:10 Uncertain viability of 291736596 O36.80X9 -UPT(+) -labs: CBC, T/S, b-hCG (recall for trending as needed) -referral for dating/via bility US issued (adjust scheduling as needed based on b-hCG) -RTO 1wk, pending completion of labs & imaging -ED precaution s reviewed Health Concerns Section Related Observation LastModified by Organization Detai ls LastModified Time None Recorded Concern Status LastModified by Organization Details LastModified Time None Recorded Advance Directives Directive None Recorded Payers Encounter Date Sequence Insurance Name Policy Number Policy Herrera Covered Member ID Herrera Member ID Guarantor Name 08/07/2020 1 [facility] [id number] Margaret Zavala [id number] Margaret Zavala 08/16/2020 1 [facility] (MEDICAID REPLACEMENT - HMO) [id number] Margaret Zavala [id number] Margaret Zavala 09/05/2020 1 [facility] (MEDICAID REPLACEMENT - HMO) [id number] Margaret Zavala [id number] Margaret Zavala 04/23/2021 1 [facility] (MEDICAID REPLACEMENT - HMO) [id number] Margaret Zavala [id number] Margaret Zavala 05/06/2021 1 [facility] (MEDICAID REPLACEMENT - O) [id number] Margaret Zavala [id number] Margaret Zavala Notes Date Note Type Note Provider Name and Address Organization Details Recorded Time 08/07/2020 text/html 30 y.o. G0 here for abnormal bleeding. Her with LMP June 26 thru July 14. Prior cycle was May 26 -. She had light spotting July 19-. Bleeding resumed July 27 thru . Reports having problems since Mar of this year. Had 2 weeks of bleeding in Mar. In Apr she bled for 4 days. Bleeding is combination of spotting and heavy cycles.Reports prior to Mar her cycles were monthly lasting for 7 days. Review of records indicate that she had been attempting and had evaluation with [facility]. Normal US and hormone panel done end of last year/early this year. She has never been on control. She has been attempting since marriage in Jan 2019. does not have children and has not had a semen analysis completed. She denied a history of STDs. FedericaYENI Smallwood [facility] 08/07/2020 14:25:46 08/16/2020 text/html Lab only visit f or progesterone level Federica TurnerYENI yanez [facility] 08/16/2020 15:05:06 09/05/2020 text/html Abnormal BleedingReported bypatient.Onset/Timing :past 6+ cycles Duration:almost daily Associated Symptoms:no dyspareunia; no change in bowel function; no urinary symptoms; no vaginal discharge; no vaginal itching/irritation;pel daniel pain; R sided pain on and off since 2018, last time 1 wk ago--last a couple days, cramps--pelvic u/s 11/2019 wnl as aboveAnnual GYNReported bypatient.History:remai fidel trying to conceive Menstrual cycle:Unexplained vaginal bleeding; as above Urinary symptoms:No hematuria; No incontinence Vulva:No genital lesion Vagina:Normal vaginal discharge Breast:No breast pain; No breast lump; No nipple discharge Current Contraception:[place] us relationship; control not practiced; Requests testing for sexually transmitted infections; had recent nuswab 08/08/[address]-ng-trich Sexual complaints:No sexual complaints; No pain during intercourse; Normal libido Menopausal Symptoms:No menopausal symptoms; Normal vaginal lubrication Psychological symptoms:No depression; No anxiety; No PMDD Preventive measures:Encourage self breast examination; Encourage regular exercise 30yo G0 here as new patient with complaints of infertility and abnormal uterine bleeding. She reports being since 01/2019 and not using any contraception with intercourse approx 5-6x/month and following ovulation by a phone sugar. She reports irregular menses in 2019 where she missed some months (missed May, August, spotted in September, February). Since 03/2020 she reports bleeding frequently (for example in July: 07/07-07/14, 07/19-07/21, 07/27-08/06, 08/10-08/11 and 08/13-08/24). Bleeding is never heavy and is usually spotting.She also reports hair growth on her chin for which she shaves every other day. She denies hot flashes, night sweats, vaginal dryness, unusual headaches, vision changes.Had normal pelvic u/s 11/2019 with bilateral ovarian follicles. Eyal magdaleno, [place] - [facility] 09/07/2020 08:47:16 05/06/2021 text/html Ms. Zavala is a 31yo at 7w3d by LMP 03/15/21 (RADHA 12/20/21) here for evaluation of new . planned & welcomed. No medications or contraception at the time of conception. Reports regular, monthly periods prior to w/ sure LMP. Last period w/ same amount/duration of bleeding as usual. Currently having occasional mild cramping but no vaginal bleeding. Having daily mild nausea but no vomiting. Colton magdaleno, YENI - [facility] 05/06/2021 16:59:27 OBGyn Episode No OBEpisode recorded.
--- OUTSIDE RECORDS SUMMARY | 2024-06-26 16:48 | XMS_ITS | Referral Summary ---
Author Organization [facility] Address [address] [place] [address] Care Team Providers Care Bench Worker Binding Name Role Phone Karina Bates NP Primary Care Provider [phone] Allergies No known active allergies Medications 25/iron fum/folic/dha (-1 ORAL) Take by mouth Active ferrous sulfate 325 mg (65 mg of elemental iron) tabletIndicatio ns:Iron Deficiency Anemia Take 1 tablet (65 mg of elemental iron total) by mouth daily with breakfast Active docusate sodium (COLACE) 100 mg capsuleIndicati ons:constipatio n Take 1 capsule (100 mg total) by mouth 2 (two) times a day as needed for constipation 14 capsule 4 Active ibuprofen (ADVIL,MOTRIN) 800 mg tablet Take 1 tablet (800 mg total) by mouth every 8 (eight) hours as needed for pain (pain) 30 tablet 4 Active oxyCODONE-aceta minophen (PERCOCET) 5-325 mg per tabletIndicatio ns:Pain Take 1 tablet by mouth every 4 (four) hours as needed for pain (pain) 14 tablet 4 Active Active Problems Problem Noted Date Diagnosed Date Delivery of by section 2023 with 39 completed weeks gestation 08/2021 Non-reassuring electronic monitoring joel ng 12/10/2021 Overview (12/12/2021): Added automatically from request for surgery [id number] Social History Tobacco Use Types Packs/Day Years Used Date Smoking Tobacco: Never AUDIT-C Answer Date Recorded Q1: How often do you have a drink containing alcohol? Never 08/12/2023 Q2: How many drinks containi ng alcohol do you have on a typical day when you are drinking? Patient does not drink Q3: How often do you have si x or more drinks on one occasion? Never 08/12/2023 Overall Financial Resource Strain (CARDIA) Answe r Date Recorded How hard is it for you to pa y for the very basics like food, housing, medical care, and heating? Not hard at all 08/12/2023 PHQ-2 Answer Date Recorded PHQ-2 Total Score (If total score is 3 or more points, staff should administer the PHQ-9) 0 08/12/2023 [facility] - Occupational Stress Questionnaire Answer Date Recorded Do you feel stress - tense, restless, nervous, or anxious, or unable to sleep at night because your mind is troubled all the time - these days? Not at all 08/12/2023 Hunger Vital Sign Answer Date Recorded Within the past 12 months, y ou worried that your food would run out before you got the money to buy more. Never true 08/12/19 24 Within the past 12 months, t he food you bought just didn't last and you didn't have money to get more. Never true 08/12/2023 PRAPARE - Transportation Answer Date Re corded In the past 12 months, has l ack of transportation kept you from medical appointments or from getting medications? No 07/2023 In the past 12 months, has l ack of transportation kept you from meetings, work, or from getting things needed for daily living? No 08/12/2023 [place] Depression Scale Answer Date Recorded [place] Depression Scale Total 2 08/14/2023 The thought of harming myself has occurred to me . Never 08/14/2023 PHQ-9 Answer Date Recorded PHQ-9 Total Score 0 08/12/2023 Housing Stability Vital Sign Answer Chandra e Recorded In the last 12 months, was t here a time when you were not able to pay the mortgage or rent on time? No 08/12/2023 Number of Times Moved in the Last Year Not on fi le 08/12/2023 At any time in the past 12 m [facility], were you homeless or living in a jail (including now)? No 08/12/2023 Personal Safety Answer Date Recorded Have you ever been in or are you currently in a harmful physical or emotional relationship or is someone making you feel afraid or unsafe? Denies 08/12/2023 Comments No Sex and Gender Information Value Date Recorded Sex Assigned at Not on file Legal Sex Female 8:40 PM [employer] Gender Identity Not on file Sexual Orientation Not on file Last Filed Vital Signs Vital Sign Reading Time Taken Comments Blood Pressure 118/69 08/14/2023 9:21 AM CDT Pulse 92 08/14/2023 9:21 AM CDT Temperature 37.1 C (98.8 F) 08/14/2023 9:21 AM CDT Respiratory Rate 18 08/14/2023 9:21 AM CDT Oxygen Saturation 100% 08/14/2023 9:21 AM CDT Inhaled Oxygen Concentration - - Weight 65.8 kg (145 lb) 08/12/2023 7:15 AM CDT Height 149.9 cm (4' 11 ) 08/12/2023 7:15 AM CDT Body Mass Index 29.29 08/12/2023 7:15 AM CDT Plan of Treatment Not on file Insurance CHOICE PLUS [facility] PLAN [facility] PL[facility] Advance Directives For more information, please contact: [phone] * Full Code (Latest Code Status on File) Date Activated Date Inactivated Comments 08/12/2023 7:59 PM 08/14/2023 2:57 PM * Full Code Date Activated Date Inactivated Comments 08/12/2023 7:12 AM 08/12/2023 7:59 PM Full CPR in ca se of cardiopulmonary arrest * Full Code Date Activated Date Inactivated Comments 12/12/2021 9:22 AM 12/14/2021 4:28 PM * Full Code Date Activated Date Inactivated Comments 12/10/2021 9:05 PM 12/12/2021 9:22 AM Full CPR in case of cardiopulmonary arrest Care Teams Bench Worker Binding Relationship Specialty Start Date End Date Karina Bates NP PCP - General Nurse Practitioner 06/29/23
--- OUTSIDE RECORDS SUMMARY | 2024-06-26 16:48 | XMS_ITS | Clinical Summary ---
Author Organization [facility] Address [address] [place] [address] Care Team Providers Care Assistant Guest Services Manager Name Role Phone Unavailable Primary Care Provider Unavailabl e Source Comments [facility],non-owned Affiliates and Associated Physician Practices is amultiple site organization consisting of ambulatory clinics and hospital sitesin [place], [place], [place] and [place]. This disclosure is being madepursuant to the Care Everywhere program and may not contain all information available regarding this patient. Last updated 17.[facility] [employer] ([employer]ja [employer]) Social History Tobacco Use Types Packs/Day Years Used Date Smoking Tobacco: Never Assessed Comments No Sex and Gender Information Value Date Recorded Sex Assigned at Not on file Legal Sex Female 4:20 PM CDT Gender Identity Not on file Sexual Orientation Not on file Plan of Treatment Health Maintenance Due Date Last Done Comments PAP SMEAR 1992 HIV SCREENING 01/14/2007 HEPATITIS C SCREENING 01/10/2010 DTAP/TDAP/TD VACCINES (1 - Tdap) 01/14/2011 HEPATITIS B VACCINE (1 of 3 - 19+ 3-dose series) 01/14/2011 COVID-19 VACCINE (3 - 2023-2 5 season) 2023 11/16/2020, 10/25/2020 DEPRESSION SCREENING 03/09/2024 INFLUENZA VACCINE (Season Ended) 2024 04/23/2021, 03/21/2020 ZOSTER VACCINE (1 of 2) 01/14/2042 HIB VACCINE Aged Out No longer eligi ble based on patient's age to complete this topic HPV VACCINE Aged Out No longer eligi ble based on patient's age to complete this topic MENINGOCOCCAL (Group B) VACCINE SHARED DECISION-MAKING Aged Out No longer eligible based on patient's age to complete this topic MENINGOCOCCAL GROUPS A/C/Y/W VACCINE Aged Out No longer eligible b ased on patient's age to complete this topic PNEUMOCOCCAL VACCINE Aged Out No long er eligible based on patient's age to complete this topic Insurance [facility] MEDICAID
--- OUTSIDE RECORDS SUMMARY | 2024-06-26 16:48 | XMS_ITS | Data Portability ---
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 Plan of Treatment Reminders Order Date Submit Date Provider Last Modified By Organization Details Last Modified Time Details Appointments None recorded. Lab streptococc us group B, culture, unspecified specimen 2023 [employer] [facility], [address] [place], [address], 4 09:39:10 Referral None recorded. Procedures None recorded. Surgeries None recorded. Imaging None recorded. Medication Orders Tabitha-BE 0.35 mg tablet 2023 024 [id number], [address] [facility], [place], [id number], 4 16:00:36 Patient TargetsNo targets recorded. Patient Instructions Encounter Date Encounter Id Patient Instructions Last Modified By Organization Details Last Modified Time 09/09/2023 [id number] after : exercises [email or web address] Not available 09/09/2023 12:14:12 contraception information [email or web address] Not available 09/09/2023 12:14:12 depression after childbirth: care instructions [email or web address] Not available 09/09/2023 12:14:12 Reason for Referral None Reported. Results Created Date Observation Date Name Description Value Unit Range Abnormal Flag Note LastModifiedBy Organization Detail LastModifiedTime 06/24/19 24 06/24/2023 VAGIN ITIS PLUS STD PANEL bacterial vaginosis BV neg negati ve normal Not Available [address], [address], 06/24/2023 14:53:36 06/24/19 24 06/24/2023 VAGIN ITIS PLUS STD PANEL sheri species C. spp neg negati ve normal Not Available [address], [address], 06/24/2023 14:53:36 06/24/19 24 06/24/2023 VAGIN ITIS PLUS STD PANEL sheri glabrata C. gla neg negati ve normal Not Available [address], [address], 06/24/2023 14:53:36 06/24/19 24 06/24/2023 VAGIN ITIS PLUS STD PANEL trichomonas vaginalis CV/TV TRICH neg negati ve normal Not Available [address], [address], 06/24/2023 14:53:36 06/24/19 24 06/24/2023 VAGIN ITIS PLUS STD PANEL chlamydia trachomatis CT neg negati ve normal This repor t is inten ded for us in clini zoila monit oring and manag ement of patie nts. It is not inten ded for use in medic al-le gal appli catio n. Not Available [address], [address], 06/24/2023 14:53:36 06/24/19 24 06/24/2023 VAGIN ITIS PLUS STD PANEL neisseria gonorrhoeae GC neg negati ve normal This repor t is inten ded for us in clini zoila monit oring and manag ement of patie nts. It is not inten ded for use in medic al-le gal appli catio n. Not Available [address], [address], 06/24/2023 14:53:36 06/23/19 24 06/24/2023 (50G) 1HR - GLUCO SE ERNESTINE ANCE TEST, MONISHAA ROSLYN ESPINOSA N glucose (50g) 1 hour 116 mg/dL <135 normal Not Available Hea [address], [address], 06/24/2023 11:25:39 06/23/19 24 06/24/2023 CBC (INCL UDES DIFF/ PLT) WBC 6.0 thous and/u L 4.0 - 9.8 normal Not Available [address], [address], 06/24/2023 11:35:57 06/23/19 24 06/24/2023 CBC (INCL UDES DIFF/ PLT) RBC 3.5 natali on/uL 3.9 - 4.9 low Not Available [address], [address], 06/24/2023 11:35:57 06/23/19 24 06/24/2023 CBC (INCL UDES DIFF/ PLT) hemoglobin 9.1 g/dL 11.8 - 14.8 low Not Available [address], [address], 06/24/2023 11:35:57 06/23/19 24 06/24/2023 CBC (INCL UDES DIFF/ PLT) hematocrit 29.2 % 35.5 - 44.0 low Not Available [address], [address], 06/24/2023 11:35:57 06/23/19 24 06/24/2023 CBC (INCL UDES DIFF/ PLT) MCV 83.9 fL 82.0 - 99.0 normal Not Available [address], [address], 06/24/2023 11:35:57 06/23/19 24 06/24/2023 CBC (INCL UDES DIFF/ PLT) MCH 26.1 pg 27.2 - 32.6 low Not Available [address], [address], 06/24/2023 11:35:57 06/23/19 24 06/24/2023 CBC (INCL UDES DIFF/ PLT) MCHC 31.2 g/dL 31.5 - 35.5 low Not Available [address], [address], 06/24/2023 11:35:57 06/23/19 24 06/24/2023 CBC (INCL UDES DIFF/ PLT) RDW-CV 13.3 % 11.5 - 14.5 normal Not Available [address], [address], 06/24/2023 11:35:57 06/23/19 24 06/24/2023 CBC (INCL UDES DIFF/ PLT) platelet 256 thous and/u L 140 - 350 normal Not Available [address], [address], 06/24/2023 11:35:57 06/23/19 24 06/24/2023 CBC (INCL UDES DIFF/ PLT) MPV 10.8 fL 9.3 - 12.4 normal Not Available [address], [address], 06/24/2023 11:35:57 06/23/19 24 06/24/2023 CBC (INCL UDES DIFF/ PLT) absolute neutrophil 4.23 thous and/u L 1.90 - 7.00 normal Not Available [address], [address], 06/24/2023 11:35:57 06/23/19 24 06/24/2023 CBC (INCL UDES DIFF/ PLT) absolute lymphocyte 1.16 thous and/u L 0.70 - 4.50 normal Not Available [address], [address], 06/24/2023 11:35:57 06/23/19 24 06/24/2023 CBC (INCL UDES DIFF/ PLT) absolute monocyte 0.45 thous and/u L 0.10 - 1.30 normal Not Available [address], [address], 06/24/2023 11:35:57 06/23/19 24 06/24/2023 CBC (INCL UDES DIFF/ PLT) absolute eosinophil 0.08 thous and/u L <0.70 normal Not Available [address], [address], 06/24/2023 11:35:57 06/23/19 24 06/24/2023 CBC (INCL UDES DIFF/ PLT) absolute basophil 0.03 thous and/u L <0.20 normal Not Available [address], [address], 06/24/2023 11:35:57 06/23/19 24 06/24/2023 CBC (INCL UDES DIFF/ PLT) absolute immature granulocyte 0.03 thous and/u L <0.03 normal Not Available [address], [address], 06/24/2023 11:35:57 06/23/19 24 06/24/2023 OB 28W (SYPH HIV 1/2 Ag/Ab Non-Re active non-re active normal Not Available [address], [address], 06/24/2023 12:54:04 06/23/19 24 06/24/2023 OB 28W (SYPH syphilis Ab Non-Re active non-re active normal Not Available [address], [address], 06/24/2023 12:54:04 07/21/19 24 07/25/2023 STREP TOCOC CUS, GROUP B CULTU RE streptococcu s, group B culture SEE NOTE STREP TOCOC CUS, GROUP B CULTU RE Micro Numbe r: [id number] Test Statu s: Final Speci men Sourc e: Recto vagin al Speci men Quali ty: Adequ ate Resul t: No group B Strep tococ cus isola shayy Note per CDC guide lines optim al recov janie is achie lupis by swabb ing both the lower vagin a and rectu m (thro ugh the anal sphin cter) . Not Available [employer] [facility] [address] , [place], [address], 07/25/2023 09:39:10 Result Notes None recorded. Problems Name Problem SNOMED Code Status Onset Date Resolution Date Notes Provider Name and Address Organization Details Recorded Time Pregnanc y 46847640 Completed 202106/20/[address], [address], [employer] [place] 4 12:14:24 Abnormal finding on evaluati on procedur e [id number] Completed Left + Right EIF, R Hydroneph rosis on Anatomy, need spine views. Plan to repeat scan at next visit. MFM referral if unresolve lemuel Gonzalez null, [facility] 3 16:12:05 Pregnanc y 32648256 Completed 202209/09/2023 TIFFANIE AYALA [address], [address], [facility] 4 12:14:23 Past pregnanc y history of section 093304174 Completed short interval , recommend [facility] KELLEY VENTURA DO [address] [place] [address], [address], [facility] 4 11:59:10 finding [id number] Completed G1 with Hirschpru ngs Ewa tatum, [address], [address], [facility] 4 12:19:24 finding [id number] Active G1 with Hirschpru ngs Ewa tatum, [address], [address], [facility] 4 12:19:24 Problem Notes None recorded. Procedures Surgical History Date Name Laterality Status Provider Name and Address Organization Details Recorded Time 4 delivery completed Kristan Zaldivar [facility] 08/25/2023 15:35:09 3 Date of Last Pap Smear completed Linda Bagley [facility] 03/06/2023 15:20:19 delivery completed Ewa Sandoval [facility] [place] 12/26/2021 13:17:19 Imaging Results None recorded. Procedure Notes None recorded. Medical Equipment None Reported. Allergies No known drug allergies Medications Name Sig Start Date Stop Date Status Note LastModified by Organization Details LastModified Time terconazo le 0.4 % vaginal cream INSERT 1 APPLICAT ORFUL VAGINALL Y EVERY DAY FOR 7 DAYS 07/09 completed Not Available Not Available Not Available ibuprofen 800 mg tablet 08/24 completed Not Available Not Available Not Available ondansetr on HCl 4 mg tablet TAKE 2 TABLETS BY MOUTH EVERY 6 HOURS 07/09 completed Not Available Not Available Not Available metronida zole 500 mg tablet Take 1 tablet every 12 hours by oral route for 7 days. 12/26 completed Not Available Not Available Not Available oxycodone -acetamin ophen 5 mg-325 mg tablet TAKE 1 TABLET BY MOUTH EVERY 4 HOURS NEEDED FOR PAIN 08/24 completed Not Available Not Available Not Available docusate sodium 100 mg capsule TAKE ONE CAPSULE BY MOUTH TWICE DAILY NEEDED FOR CONSTIPA TION 08/24 completed Not Available Not Available Not Available Calcium-5 00 500 mg (as calcium carbonate 1,250 mg) tablet active Calcium 500/500m g Calcium (1,250mg ) tablet Not Available Not Available Not Available nitrofura ntoin monohydra te/macroc rystals 100 mg capsule 07/09 completed Not Available Not Available Not Available Vitamins with Minerals 28 mg iron-800 mcg tablet Take 1 tablet by oral route. 02/06 completed Not Available Not Available Not Available FeroSul 325 mg (65 mg iron) tablet Take 1 tablet every day by oral route. 02/06 completed Not Available Not Available Not Available Ana Rosa 0.35 mg tablet TAKE 1 TABLET BY MOUTH EVERY DAY active Not Available Not Available No t Available + DHA active Not Available Not Available Not Available 28 mg iron-800 mcg tablet 01/06 completed Not Available Not Available Not Available Prena1 Chew 1.4 mg chew tablet,im mediate - delayed release Chew 1 tablet every day by oral route. 12/26 completed Not Available Not Available Not Available ID NOW COVID-19 Test Kit TEST DIRECTED TODAY 01/06 completed Not Available Not Available Not Available Vitals Date Recorded Body height Body mass index (BMI) Body weight Systolic blood pressure Diastolic blood pressure Provider Name and Address Organization Details Last Updated DateTime 07/21/2023 149.86 cm 29.4 kg/m2 02115.76 7546 g 106 mm[Hg] 66 mm[Hg] Sonia Boone [facility] 4 14:42:20 Date Recorded Body height Body mass index (BMI) Body weight Systolic blood pressure Diastolic blood pressure Provider Name and Address Organization Details Last Updated DateTime 07/28/2023 149.86 cm 29.3 kg/m2 38844.8 9365 g 100 mm[Hg] 60 mm[Hg] Berenice Goss [facility] 4 12:20:27 Date Recorded Body height Body mass index (BMI) Body weight Body temperature Systolic blood pressure Diastolic blood pressure Provider Name and Address Organization Details Last Updated DateTime 4 149.86 cm 29.3 kg/m2 09142.8 9 g 97 [degF] 102 mm[Hg] 60 mm[Hg] Franci Armendariz [facility] 4 16:16:10 Date Recorded Body height Body mass index (BMI) Body weight Body temperature Systolic blood pressure Diastolic blood pressure Provider Name and Address Organization Details Last Updated DateTime 4 149.86 cm 25.2 kg/m2 71525.6 1 g 97.7 [degF] 119 mm[Hg] 62 mm[Hg] Kristan Zaldivar [employer] [place] 4 15:32:25 Date Recorded Body height Body mass index (BMI) Body weight Systolic blood pressure Diastolic blood pressure Provider Name and Address Organization Details Last Updated DateTime 09/09/2023 149.86 cm 25.4 kg/m2 56882.64 g 100 mm[Hg] 58 mm[Hg] Kristan Zaldivar [employer] [place] 11:56:35 Social History Question Answer Notes LastModified by Organizat ion Details LastModified Time Tobacco Smoking Status Never Smoker Linda Bagley null, [employer] [place] 06/04/2021 10:51:43 What Is Your Level Of Alcohol Consumption? None Information not available 06/04/2021 Are You Blind Or Do You Have Difficulty Seeing? No Information not available 06/04/2021 Are You Currently Employed? Yes [email or web address] Information not available 08/25/2023 Are You Deaf Or Do You Have Serious Difficulty Hearing? No Information not available 06/04/2021 What Type Of Diet Are You Following? REGULAR Information not available 06/04/2021 Do You Or Have You Ever Used E-cigarettes Or Vape? Never Used Electronic Cigarettes Information not available 06/04/2021 How Many Children Do You Have? 1 [email or web address] Information not available 04/09/2023 What Is Your Relationship Status? Information not available 06/04/2021 Are You Sexually Active? Yes Information not available 06/04/2021 Do You Use Any Illicit Or Recreational Drugs? No Information not available 06/04/2021 Do You Or Have You Ever Used Any Other Forms Of Tobacco Or Nicotine? No Information not available 06/04/2021 Sex: Unknown Functional Status Question Answer Note LastModified by Organization D etails LastModified Time What is your exercise level? None Information not available 06/04/2021 Mental Status None recorded. Family History Relationship Description Onset Age of this Age Resolved Age Notes LastModified by Organization Details LastModified Time Father No current problems or disability Not available 11:26:48 Mother No current problems or disability Not available 11:26:48 Medical History Condition Response Other Cancer N High Blood Pressure N Colon Cancer N Cytomegalovirus N Hyperthyroidism N Herpes (HSV) N Breast Cancer N Blood Transfusion N MRSA N Lung Cancer N Hypothyroidism N Depression N Incontinence N Panic Attacks N Neurological Disorder N Deep Vein Thrombosis N Anxiety Disorder N Autoimmune disease N Arthritis N Tuberculosis/Positive PPD N Shingles N Polycystic Ovarian Syndrome N Cervical Cancer N Chlamydia N Hematuria N Stroke N Varicosities N Crohn's Disease N Seasonal allergies N Alzheimer's/Dementia N COPD/Emphysema N HPV/Genital Warts N Endometriosis N IBS (Irritable Bowel Syndrome) N History of Abnormal Pap N High Cholesterol N Liver Disease N Kidney Infection N Fibromyalgia N Ulcer N Kidney Disease N HIV N Gallbladder disease N Sickle Cell Disease/Trait N Von Willebrand disease N ADD/ADHD N Eating Disorder N Anemia N Diabetes Mellitus (non-insulin dependent ) N Ovarian Problems N Multiple Sclerosis N Gonorrhea N Frequent Urinary Tract infections N Osteopenia N Headaches/migraines N GERD (reflux) N Ovarian Cancer N Diabetes (insulin dependent) N Seizures/Epilepsy N Fibroids N Heart Attack N Asthma N Lupus N Endometrial Cancer N Rubella N Blood Clotting Disorder N Bipolar Disorder N Diabetes Mellitus (during ) N Ulcerative Colitis N Hepatitis N Heart Disease N Pulmonary Embolism N RPR N Chicken Pox N Osteoporosis N Gynecological History Statement/Question Response Flow Moderate Date of last HPV 03/06/2023 Frequency of Cycle (Q days) Irregular Date of LMP 10/07/2022 HPV Vaccine Y Date of Last Pap Smear 03/06/2023 Duration of Flow (days) 7 Current Control Method Age at Menarche 15 Obstetrics History GPAL:G 2 P 3 0 0 3 Type Value Full Term 3 Living 3 Total 2 Past Encounters Encounter ID Performer Location Encounter Start Date Encounter Closed Date Diagnosis/Indication Diagnosis SNOMED-CT Code Diagnosis ICD10 Code Diagnosis Note [id number] Salima Loyd CNM [facility] [address] [place] [address] 06/04/2021 10:47:21 06/04/2021 12:37:39 test positive 143017744 Z32.01 LMP of 03/20. Dating based on today's scan at 03/15 with edc of 12/[id number] [facility] [address] [place] [address] 07/02/2021 10:56:34 07/02/2021 15:39:37 Routine care 672817180 Z34.01 Z34.81 screening 2437 55895 Z36.89 [id number] [address]INA [address] CNM [facility] [address] [place] [address] 07/29/2021 16:24:27 07/29/2021 18:16:22 Gestation period, 20 weeks 42270979 Z3A.20 IUP @ 20+ wks. Anatomy Incomplete . needs spine views. Bilateral EIF, mild R hydronephr osis noted on anatomy. Plan repeat next visit if still present, [facility] referral. placenta WNL, active F/M. No OB complaints . RTO 4 wks. [id number] [facility], [facility] [address] [place] [address] 08/26/2021 17:39:37 08/26/2021 18:22:12 Gestation period, 24 weeks 329968446 Z3A.24 IUP @ 24+ wks. No OB complaints . RTO 4 wks, discussed labs/TDaP/ EPDS next visit. complete anatomy, bilateral echogenic foci, right renal hydronephr osis noted. [facility] referral sent. [id number] ELAINA JAC[facility]BSON, [facility] [address] [place] [address] 09/24/2021 11:47:50 09/24/2021 12:25:59 Routine care 975058171 Z34.03 Z34.83 O09.513 O09.523 collected Depression screening 171 263926 Z13.31 EPDS 2 no concerns. Gestation period, 28 weeks 30919000 Z3A.28 IUP @ 28+ wks. No OB complaints . Labs, TDaP order given today. EPDS neg. RTO 2 wks, Seen in [facility] [id number] Z76.89 US with MFMIMPRESS ION:Single , live, intrauteri ne at 82m5xIawam size is consistent with establishe d EDDAmnioti c fluid volume: within normal limitsFeta l bilateral renal UTD A1No other malformati ons were seen within the limitation s ofultrasou nd.RECOMME ND:Ultraso und in 4 weeks for growth assessment , completion ofanatomy survey, and to reassess kidneys(ne heduled) [id number] Ewa reich, [facility] [address] [place] [address] 10/10/2021 12:08:18 10/10/2021 12:57:16 [id number] ELAINA [facility]BSON [facility] [address] [place] [address] 10/25/2021 11:18:34 10/25/2021 14:28:10 Gestation period, 32 weeks 9328959 Z3A.32 IUP @ 32+ wks. No OB complaints . RTO 2 wks. 4d coplete today [id number] ELAINA [facility]BSON [facility] [address] [place] [address] 11/08/2021 15:12:34 11/08/2021 15:50:38 Gestation period, 34 weeks 86765490 Z3A.34 IUP @ 34+ wks. No OB complaints . RTO 2 wks, discussed GBS next visit. [facility] follow up 11/13 [id number] ELAINA J[facility]BSON [facility] [address] [place] [address] 11/22/2021 11:57:42 11/23/2021 11:09:51 Routine care 407788042 Z34.03 Z34.83 O09.513 O09.523 collected Vaginitis 94061127 N76.0 thin white vaginal discharge, rx sent, nitrazine negative. Gestation period, 36 weeks 65897799 Z3A.36 IUP @ 36+ wks. No OB complaints . GBS today. PTL precaution s. RTO 1 wk [id number] ELAINA [facility]BSON [facility] [address] [place] [address] 11/29/2021 15:54:54 11/29/2021 17:16:23 Gestation period, 37 weeks 15469530 Z3A.37 IUP @ 37+ wks. No OB complaints . Labor precaution s reviewed. RTO 1 wk. [id number] ELAINA JACOBSON [facility] [address] [place] [address] 12/06/2021 14:35:27 12/06/2021 20:51:18 Gestation period, 38 weeks 77831015 Z3A.38 IUP @ 38+ wks. No OB complaints . Labor precaution s reviewed. desires eIOL. scheduled at [facility] at 2100 12/10/21. FWB reassuring today. [id number] KELLEY VENTURA, [facility] [address] [place] [address] 12/26/2021 12:49:35 12/27/2021 10:10:30 state 73630244 Z39.2 31y.o. here for PP visit. - Encouraged continuing pumping, - PNV while at reproducti ve age - Restart exercise as tolerated - No s/sx depression , screen NEG - Discussed minimum interpregn chelsea interval of 12-18 months to reduce negative outcomes - Contracept ion: Discussed options including POPs, Nexplanon, hormonal and copper IUDs. Discussed risks, efficacy, noncontrac eptive benefits, and side effects of each option, including risk of VTE with hormonal contracept ion and uterine perforatio n, expulsion, infection with IUD. Will consider POPs - RTO in 4 weeks for 6w PPV and full physical [id number] [facility] Cat is, [facility] [address] [place] [address] 01/23/2022 12:01:44 01/23/2022 12:42:53 state 85438651 Z39.2 Surveillan ce of contraception 953275168 Z30.40 [id number] Ewa Cat is, [facility] [address] [place] [address] 01/06/2023 14:34:05 01/06/2023 17:56:54 detection examination 74351179 Z32.01 Z32.00 LMP 10/31/22 unsureUS today 8w4d RADHA baby with Hirschprun gs will refer to MFMH/O CS for NRFSN/V zofran eRX Nausea and vomiting 1693 1999 R11.2 cond ition affecting obstetrical care of mother 295431998 O36.90X1 first baby with Hirschspru ngs please refer to MFM/geneti c counseling [id number] ROXANE KABA, [facility] [address] [place] [address] 02/06/2023 14:24:40 02/07/2023 09:54:15 Gestation period, 13 weeks 84385357 Z3A.13 Pt comes in today for a New/First OB visit.Gest ation: 13w dEDD: 08/14/2023 -- PMH: No PMH-- Medication s: Taking daily PNV, not taking any other medication s-- Previous OB History: - NRFHT-- Mom/Sister s with hx of Pre-Eclamp bull: Yes-Sister -- History of Genital HSV: Denies-- Genetic Questions in OB Episode Done-- Accepts UNITY. Would like to know gender. Discussed logging on to the [employer] portal to find Gender Results-- PAP: unsure --BMI at Confirmati on: 25.4-Re-ev aluate BMI at 32 weeks -- Low dose Aspirin : 81 mg/day prophylaxi s is recommende d in women at high risk of preeclamps ia. Recommende d to be initiated at 12 weeks gestation. Risk Factors:(o ne present) Previous with Preeclamps ia or GHTN, Multifetal , CHTN, Diabetes, Chronic kidney disease, Autoimmune disease(tw o present) Primiparit y (or interval of >10 years between pregnancie s),Mother or sister with preeclamps ia, Older than 35, Race, Previous with adverse outcome -- First Trimester Diabetes Screening: Recommende d. Screened with: hemoglobin A1CBMI >25with one or more Risk Factors:-P hysical inactivity POC-- NOB labs done today-- Accepts Declines UNITY-- PAP: next visit-- Low dose aspirin recommende d-- Pre-Pregna ncy BMI: 25.4-- RTC 4 weeks Guide: Given and reviewed. Toxoplasmo sis precaution s reviewed. Reviewed office visit schedule during . Reviewed Quickening and normal FHTs. Routine an tenatal care 063495598 Z34.01 Z34.81 O09.511 O09.521 screening 5887 37258 Z36.0 [id number] Salima Loyd CNM [facility] [address] [place] [address] 03/06/2023 14:44:59 03/08/2023 14:22:45 Gestation period, 17 weeks 24537203 Z3A.17 Routine an tenatal care 055468819 Z34.01 Z34.81 Screening for malignant neoplasm of cervix 743364505 Z12.4 screening 2437 93976 Z36.89 [id number] ROXANE KABA, [facility] [address] [place] [address] 04/10/2023 15:52:46 04/10/2023 17:31:15 Gestation period, 22 weeks 58719868 Z3A.22 Pt is here for a LOVE appointmen t. She is taking vitamins. She has no complaints or questions. Anatomy complete Reports feeling movement. Denies vaginal bleeding, abdominal cramps, N/V, contractio ns, or LOF. Denies headache, vision changes, swelling of hands or face, and epigastric pain. Discussed PTL and precaution s given. There are no identifiab le risk factors for pre-term labor. Discussed with pt that I do not delivery babies. Recommende d pt see a Delivery Provider next visit. screening for malformation 539436969 Z36.3 Routine an tenatal care 042968448 Z34.01 Z34.81 O09.511 O09.521 Nausea and vomiting 1693 2000 R11.2 Pt educated on smaller/mo re frequent meals, pushing p.o. water intake, and avoiding spicy/frie d foods. Rx for Reglan sent. Pt encouraged to notify HCP if no relief. Pt states understand ing of POC. [id number] Salima Loyd CNM [facility] [address] [place] [address] 05/18/2023 11:16:21 05/18/2023 12:28:59 Gestation period, 27 weeks 58528152 Z3A.27 Routine an tenatal care 588894545 Z34.01 Z34.81 [id number] MARIO CelisM [address] [address] 06/23/2023 10:00:55 06/23/2023 10:53:12 screening 937137418 Z36.89 Normal pre gnancy in multigravida 6800993888 40188 Z34.83 Gestation period, 32 weeks 2535084 Z3A.32 labor precaution s given. FM counts discussed. F/u in L&D if experienci ng decreased movement, leaking fluid, 4 or more contractio ns in 1 hour not relieved by rest and fluids, or regular uterine contractio ns increasing in frequency and/or intensity. Sacroiliac instability [id number] M53.2X8 Vaginal irritation 35948 6004 N89.8 [id number] KELLEY VENTURA DO [address] [address] 07/10/2023 11:00:29 07/10/2023 12:38:36 Gestation period, 35 weeks [id number] Z3A.35 Additional diagnosis detail: 35 weeks gestation of Normal pre gnancy in multigravida [id number] 76824 Z34.81 Additional diagnosis detail: Normal in multigravi da in third trimester Past pregn chelsea history of section [id number] O34.219 Additional diagnosis detail: History of delivery, currently [id number] KELLEY VENTURA DO [address] [address] 07/21/2023 14:28:56 07/22/2023 12:48:08 Gestation period, 36 weeks [id number] Z3A.36 Additional diagnosis detail: 36 weeks gestation of Past pregn chelsea history of section [id number] Z98.891 Additional diagnosis detail: History of delivery screening 2437 50528 Z36.85 [id number] KATE BOYD [address] [address] 07/28/2023 12:14:02 07/28/2023 14:53:39 Gestation period, 37 weeks 97213119 Z3A.37 care status 24 [id number] Z34.93 Pt is here for a LOVE appointmen t. She is taking vitamins. She has no complaints or questions. Denies vaginal bleeding, abdominal cramps, N/V, contractio ns, and LOF. Denies headache, vision changes, swelling of hands or face, and epigastric pain. Reports feeling movement. Discussed Movement Counts. Discussed Labor Precaution s. Follow up in L&D if experienci ng decreased movement, leaking fluid, or regular uterine contractio ns increasing in frequency and/or intensity. Reminded pt that I do not delivery babies. Recommende d pt see a Delivery provider next visit. Her is scheduled. Past pregn chelsea history of section 061556260 Z98.[id number] [facility] [address] [place] [address] 08/04/2023 16:01:34 08/04/2023 16:52:01 Gestation period, 38 weeks 99958913 Z3A.38 Past pregn chelsea history of section 360963060 Z98.891 Additional diagnosis detail: History of delivery care status 24 3508985 Z34.93 Pt is here for a LOVE goff t. She is taking vitamins. She has no complaints or questions. Denies vaginal bleeding, abdominal cramps, N/V, contractio ns, and LOF. Denies headache, vision changes, swelling of hands or face, and epigastric pain. Reports feeling movement. Discussed Movement Counts. Discussed Labor Precaution s. Follow up in L&D if experienci ng decreased movement, leaking fluid, or regular uterine contractio ns increasing in frequency and/or intensity. Reminded pt that I do not delivery babies. Her is scheduled. [id number] Dina Reed MD [facility] [address] [place] [address] 08/25/2023 15:16:54 08/25/2023 17:33:40 state 85630917 Z39.2 doing well following her repeat c section delivery. RTC 4 wk Patient en counter status [id number] Z30.011 pt counseled on contracpti ve options. Would like progestin only pills, she is breast feeing.Add itional diagnosis detail: Oral contracept ion initiation [id number] TIFFANIE AYALA, NP-[facility] h [address] [place] [address] 09/09/2023 11:51:57 09/09/2023 14:53:22 state [id number] Z39.2 Patient is an establishe d patient, she is here for her 6 week visit. Her course was uncomplica shayy. Denies pelvic pain. Denies any acute concerns. Baby and Mom are doing good. Home life is going well. -- Depression discussed, may occur up to 1 year after delivery. Pt denies any feelings of depression , frequent crying, or feelings of harming self or others. Educated on the warning signs of depression and when to seek medical attention. -- PNV while at reproducti ve age for benefits in early . -- Restart exercise as tolerated. -- May resume sexual intercours e as tolerated. -- Discussed benefits of waiting minimum 12-18 months between pregnancie s to reduce negative outcomes.- - Lochia: Bled for 2 weeks. Scant spotting. No odor.-- Uterus: Involuted- - Bowl and Bladder: Reports no issues. Discussed fiber intake, staying hydrated, and stool softeners PRN.-- Perineum: Denies redness, edema, or discharge. Discussed Perineal care witch judy and dermoplast PRN.-- Hemorrhoid s: Denies. Discussed Witch Judy pads, hemorrhoid balm, and stool softener PRN.-- Breasts: Pt is breast feeding. Denies breast pain, warmth, or firmness. Encouraged continuing breastfeed ing. Counseled regarding benefits for mother and baby.-- Safe Sleeping Instructio ns per AAP: STRONGLY ADVISED against co-sleepin g with infants. Infants should always sleep: on their backs, on firm surfaces, on clean surfaces, in the absence of (second hand) smoke, under light (comfortab le) blanketing , and their heads should never be covered. Avoid objects in the crib that could present hazard to infant.-- Pre-Eclamp bull S/S reviewed in detailed. Cautioned pt to be seen right away in office or at hospital if LAM, visual changes (floaters, narrowing, and/or shortening of vision), RUQ/epigas tric pain). If checking BP's at home - target range reviewed - >150/90 go to hospital for evaluation .-- Contracept ion options discussed and would like: POP-- PAP up to date Maternal p ostpartum depression screening [id number] 93921 Z13.32 Contracept ion care education [id number] Z30.09 Contracept tamanna counseling : Discussed options including OCPs, NuvaRing, Nexplanon, hormonal and copper IUDs. Discussed risks, efficacy, non contracept tamanna benefits, and side effects of each option, including risk of VTE with hormonal contracept ion and uterine perforatio n, expulsion, infection with IUD. Discussed risks of CHCs in PP and with breastfeed ing. Health Concerns Section Related Observation LastModified by Organization Detai ls LastModified Time None Recorded Concern Status LastModified by Organization Details LastModified Time None Recorded Advance Directives Directive None Recorded Payers Encounter Date Sequence Insurance Name Policy Number Policy Herrera Covered Member ID Herrera Member ID Guarantor Name 07/21/2023 1 [facility] [id number] Girgio S Millie [id number] Margaret Millie 07/28/2023 1 [facility] [id number] Girgio S Millie [id number] Margaret Millie 08/04/2023 1 [facility] [id number] Girgio S Millie [id number] Margaret Millie 08/25/2023 1 [facility] [id number] Girgio S Millie [id number] Margaret Millie 09/09/2023 1 [facility] [id number] Girgio S Millie [id number] Margaret Millie Notes Date Note Type Note Provider Name and Address Organization Details Recorded Time 07/21/2023 text/html Margaret 33 y/o he re for routine OB visit, she is 36/4 weeks, denies any vaginal spotting, bleeding, fluid leakage c/o mild cramping, movement noted, taking vitamins, getting GBS today. KELLEY VENTURA DO [address] [facility], [place], [address], [facility] - [employer] [facility] 07/21/2023 14:58:09 07/28/2023 text/html Margaret is here today for a routine OB visit. She is currently at 37.4 weeks gestation. She has no complaints or questions. She is taking vitamins. She has felt movement. She denies the presence of vaginal bleed, leaking fluid, abdominal cramps, nausea, vomiting. [facility] [place], [address], [facility] [employer] [facility] 07/28/2023 12:35:16 08/04/2023 text/html Patient is here today for a routine OB visit. She is currently at {{6 7 8 9 10 11 12 13 14 15 16 17 18 1 9 20 21 22 23 24 25 26 27 28 29 30 31 32 33 34 35 36 37 3 8 39 40 41 38.4#}} weeks gestation. vitamins: {{yes* no}} She {{has* has not}} felt movement. Margaret has no concerns. She denies any complaints of the presence of vaginal bleed, leaking fluid, abdominal cramps, nausea, vomiting, headache or visual disturbances. [place]FFANIE AYALA [id number] [place], [address], [facility] [employer] [facility] 08/04/2023 16:43:30 08/25/2023 text/html Margaret is 33 yea rs old and here today for a visit.She had a little boy named Hema. He weighed 6lbs 8 oz.She is currently breast and bottle feeding.She states that she is feel well and baby is doing good as well.She would like to start ocp/minipill Dina Reed MD [address] [place] [address], [address], [facility] [employer] [facility] 08/25/2023 16:01:56 09/09/2023 text/html Margaret is 33 yea rs old and here today for her visit.She delivered on:[id number] or bottle feeding: combinationNo concerns or complaints at this time TIFFANIE AYALA JESS[facility]EN[facility] [place] [place], [address], [employer] IV 09/09/2023 12:15:31 OBGyn Episode Ob Episode Information Episode Created Date Number of Fetuses Patient Bloodtype Patient rh Status Prepregnancy Weight lbs Domestic Partner Domestic Partner Phone Father Name Manager Sterile Processing Status 08/25/19 24 1 CLOSED Fetus Data First Name Last Name Admitted to NICU Weight (g) Sex Living Outcome Pediatric Complications Fetus ID Race Codes Race Delivery Type Full Term [id number] Radha Calculation Initial Radha Date Initial Exam Date Initial Exam Provider Initial Ultrasound Date Last Menstrual Period Date Ultra Sound Weeks Gestation 0 Eighteen To Twenty Week Radha Update Ultra Sound Date Fundal Height At Umbil Quickening Date Ultra Sound Latest Weeks Gestation Final Radha Confirmed By Final Radha Confirmed Date Final Radha Date Ultra Sound Latest Days Gestation 0 0 Menstrual History Last Menstrual Date Menses Monthly On Bcp Conception Prior Menses Frequency Hcg Plus Date Menarche Onset Age Delivery Information Delivery Date Delivery Type Labor Anesthesia Weeks Gestation Incision Type Labor Labor Length Hrs Delivered By Post Complications Tubal Sterilization Discharge Date Comments Discharge Information Feeding Method Contraceptive Method Maternal HG B and HCT Levels Ob Episode Information Episode Created Date Number of Fetuses Patient Bloodtype Patient rh Status Prepregnancy Weight lbs Domestic Partner Domestic Partner Phone Father Name Manager Sterile Processing Status 07/03/19 22 1 B Positive CLOSED Fetus Data First Name Last Name Admitted to NICU Weight (g) Sex Living Outcome Pediatric Complications Fetus ID Race Codes Race Delivery Type Billy false 3373.59 05 M true Full Term [id number] Black or Afric an Ameri can Primary Problems Problem Notes graduating nursing school Problem Name Start Date End Date Resolution Snomed Code Not e Abnormal finding on evaluation procedure [id number] Left + Right EI F, R Hydronephrosis on Anatomy, need spine views. Plan to repeat scan at next visit. MFM referral if unresolved. Radha Calculation Initial Radha Date Initial Exam Date Initial Exam Provider Initial Ultrasound Date Last Menstrual Period Date Ultra Sound Weeks Gestation 12/16/2021 07/02/2021 06/04/2021 03/20/2021 0 Eighteen To Twenty Week Radha Update Ultra Sound Date Fundal Height At Umbil Quickening Date Ultra Sound Latest Weeks Gestation Final Radha Confirmed By Final Radha Confirmed Date Final Radha Date Ultra Sound Latest Days Gestation 0 12/17/19 22 0 Pre-chica Flowsheet Flowsheet Date 07/02/2021 Licea Score Blood Edema Fundus Height Fundus Units Glucose Ketones Leukocytes Nitrite Labor Signs Protein Cervic Dilation Cervic Effacement Cervic Station Type Weight in lbs Pre/Post Dialysis Refused Weight 123.594359040892 BP Diastolic BP Location Tested BP Systolic BP Type 66 108 sitting Fetus Heart Rate Present A 155 Fetus Movement A Yes Comments NOB labs with MSAFP today Flowsheet Date 07/29/2021 Licea Score Blood Edema Fundus Height Fundus Units Glucose Ketones Leukocytes Nitrite Labor Signs Protein Cervic Dilation Cervic Effacement Cervic Station none none none neg Type Weight in lbs Pre/Post Dialysis Refused Weight 125.802073757912 BP Diastolic BP Location Tested BP Systolic BP Type 62 110 Fetus Heart Rate Present A 155 Present Fetus Movement A Yes Comments Anatomy Incomplete. needs sp ine views. Bilateral EIF, mild R hydronephrosis noted on anatomy. Plan repeat next visit if still present, MF referral. placenta WNL, active F/M. No OB complaints. RTO 4 wks. Flowsheet Date 08/26/2021 Licea Score Blood Edema Fundus Height Fundus Units Glucose Ketones Leukocytes Nitrite Labor Signs Protein Cervic Dilation Cervic Effacement Cervic Station none 24 wks none none neg Type Weight in lbs Pre/Post Dialysis Refused Weight 131.603052376203 BP Diastolic BP Location Tested BP Systolic BP Type 58 108 Fetus Heart Rate Present A 159 Present Fetus Movement A Yes Comments bilateral EIF still noted, w ith hydronephrosis, MFM referral sent today. Flowsheet Date 09/24/2021 Licea Score Blood Edema Fundus Height Fundus Units Glucose Ketones Leukocytes Nitrite Labor Signs Protein Cervic Dilation Cervic Effacement Cervic Station none 28 cm none none neg Type Weight in lbs Pre/Post Dialysis Refused Weight 136.325806599726 BP Diastolic BP Location Tested BP Systolic BP Type 56 110 Fetus Heart Rate Present A 132 Present Fetus Movement A Yes Comments [facility]:Single, live, intrauterine at 27w1d size is consistent with established RADHA Amniotic fluid volume: within normal limits bilateral renal UTD A1No other malformations were seen within the limitations ofultrasound.RECOMMEND:Ultrasound in 4 weeks for growth assessment, completion ofanatomy survey, and to reassess kidneys (scheduled with [facility])fwb reassuring. Flowsheet Date 10/10/2021 Licea Score Blood Edema Fundus Height Fundus Units Glucose Ketones Leukocytes Nitrite Labor Signs Protein Cervic Dilation Cervic Effacement Cervic Station Type Weight in lbs Pre/Post Dialysis Refused Weight 141.080433434137 BP Diastolic BP Location Tested BP Systolic BP Type Fetus Heart Rate Present Fetus Movement A Yes Comments has MFM apt next week for an atomy completion and kidney eval Flowsheet Date 10/25/2021 Licea Score Blood Edema Fundus Height Fundus Units Glucose Ketones Leukocytes Nitrite Labor Signs Protein Cervic Dilation Cervic Effacement Cervic Station none none Cramping neg Type Weight in lbs Pre/Post Dialysis Refused Weight 144.283851933645 BP Diastolic BP Location Tested BP Systolic BP Type 56 110 Fetus Heart Rate Present A 132 Present Fetus Movement A Yes Comments mfm growth at 36 weeks. 4d t elva Flowsheet Date 11/08/2021 Licea Score Blood Edema Fundus Height Fundus Units Glucose Ketones Leukocytes Nitrite Labor Signs Protein Cervic Dilation Cervic Effacement Cervic Station none 35 cm none none neg Type Weight in lbs Pre/Post Dialysis Refused Weight 145.2138134987 BP Diastolic BP Location Tested BP Systolic BP Type 60 110 Fetus Heart Rate Present A 151 Present Fetus Movement A Yes Comments MF visit 11/13. plan f/u here in 2 weeksGBS next visitfwb reassuring. Flowsheet Date 11/22/2021 Licea Score Blood Edema Fundus Height Fundus Units Glucose Ketones Leukocytes Nitrite Labor Signs Protein Cervic Dilation Cervic Effacement Cervic Station none 38 wks none none neg Type Weight in lbs Pre/Post Dialysis Refused Weight 150.006948200968 BP Diastolic BP Location Tested BP Systolic BP Type Fetus Heart Rate Present A Present Fetus Movement A Yes Comments GBS collected. growth [facility], [facility] at this time Flowsheet Date 11/29/2021 Licea Score Blood Edema Fundus Height Fundus Units Glucose Ketones Leukocytes Nitrite Labor Signs Protein Cervic Dilation Cervic Effacement Cervic Station 2+ 38 cm none none neg 0cm 0% -4 Type Weight in lbs Pre/Post Dialysis Refused Weight 152.783868667124 BP Diastolic BP Location Tested BP Systolic BP Type 58 110 Fetus Heart Rate Present A 142 Present Fetus Movement A Yes Comments concerns with lower extremit y swelling and restlessness at night. discussed increased hydration, elevation, compression socks. denies s/s of pre-e.discussed IOL will consider if more uncomfortable at next appointment. Flowsheet Date 12/06/2021 Licea Score Blood Edema Fundus Height Fundus Units Glucose Ketones Leukocytes Nitrite Labor Signs Protein Cervic Dilation Cervic Effacement Cervic Station 2+ 39 cm none Arcadia Patel trace 0cm 0% -4 Type Weight in lbs Pre/Post Dialysis Refused Weight 152.475849342000 BP Diastolic BP Location Tested BP Systolic BP Type 58 110 Fetus Heart Rate Present A 142 Present Fetus Movement A Yes Comments desires eIOL. scheduled at [facility] at 2100 12/10/21. FWB reassuring today. Declines concern Flowsheet Date 12/26/2021 Licea Score Blood Edema Fundus Height Fundus Units Glucose Ketones Leukocytes Nitrite Labor Signs Protein Cervic Dilation Cervic Effacement Cervic Station Type Weight in lbs Pre/Post Dialysis Refused Weight 132.147049814886 BP Diastolic BP Location Tested BP Systolic BP Type 72 112 Fetus Heart Rate Present Fetus Movement Comments Flowsheet Date 01/23/2022 Licea Score Blood Edema Fundus Height Fundus Units Glucose Ketones Leukocytes Nitrite Labor Signs Protein Cervic Dilation Cervic Effacement Cervic Station Type Weight in lbs Pre/Post Dialysis Refused With clothes 125.261047349339 BP Diastolic BP Location Tested BP Systolic BP Type Fetus Heart Rate Present Fetus Movement Comments Menstrual History Last Menstrual Date Menses Monthly On Bcp Conception Prior Menses Frequency Hcg Plus Date Menarche Onset Age 0103/20/2021 Genetic Screening And Infection History Question Response Note Recent Travel History Outside of Country false Cystic Fibrosis false Any Other Genetic History false Guillermo Disease false Other Infection History false Thalassemia (Bahraini, Thai, Mediterranean, Or Background): MCV < 80 false Patient Or Baby's Father Had A Child With Defects Not Listed Above false Live With Someone With TB Or Exposed To TB false Patient's Age Will Be 35 Years Or Older At Estim ated Date of Delivery false Recurrent Loss, Or A Stillbirth false Hemoglobinopathy Or Carrier false Patient Or Partner Has History Of Genital Herpes false Intellectual Disability/Autism false Maternal Metabolic Disorder (eg, Type 1 Diabetes , PKU) false History of Hepatitis false David-Sachs (eg, Lutheran, Cajun, Hebrew-Afghan) f alse History Of STD, Gonorrhea, Chlamydia, HPV, Syphi lis false Prior GBS-infected child false History of HIV false Personal or Family History o f Neural Tube Defect (Meningomyelocele, Spina Bifida, Or Anencephaly) false Hemophilia Or Other Blood Disorders false Mental Retardation/Autism false Henderson's Chorea false If Yes, Was Person Tested For Fragile X? false Other Inherited Genetic Or Chromosomal Disorder false If Yes, Agent(s) And Strength/Dosage false Sickle Cell Disease Or Trait () false Personal or Family History of Congenital Heart D efect false Rash Or Viral Illness Since Last Menstrual Perio d false Muscular Dystrophy false Medications (including Suppl ements, Vitamins, Herbs, OTC Drugs), Illicit/Recreational Drugs, Alcohol false Other Structural Defect false Down Syndrome false Delivery Information Delivery Date Delivery Type Labor Anesthesia Weeks Gestation Incision Type Labor Labor Length Hrs Delivered By Post Complications Tubal Sterilization Discharge Date Comments 2 39.3 Low Transvers e None false Discharge Information Feeding Method Contraceptive Method Maternal HG B and HCT Levels Combination Ob Episode Information Episode Created Date Number of Fetuses Patient Bloodtype Patient rh Status Prepregnancy Weight lbs Domestic Partner Domestic Partner Phone Father Name Manager Sterile Processing Status 02/07/20 23 1 B Positive CLOSED Fetus Data First Name Last Name Admitted to NICU Weight (g) Sex Living Outcome Pediatric Complications Fetus ID Race Codes Race Delivery Type Sebast jairo true 2948.34 8 M true Full Term [id number] Repeat Problems Problem Notes Problem Name Start Date End Date Resolution Snomed Code Not e Past history of section 460863218 short interval , recommend RLTCS finding 163529960 G1 wit h [place] Radha Calculation Initial Radha Date Initial Exam Date Initial Exam Provider Initial Ultrasound Date Last Menstrual Period Date Ultra Sound Weeks Gestation 08/14/2023 02/06/2023 01/06/2023 0 Eighteen To Twenty Week Radha Update Ultra Sound Date Fundal Height At Umbil Quickening Date Ultra Sound Latest Weeks Gestation Final Radha Confirmed By Final Radha Confirmed Date Final Radha Date Ultra Sound Latest Days Gestation 0 08/14/19 24 0 Pre- Flowsheet Flowsheet Date 02/06/2023 Licea Score Blood Edema Fundus Height Fundus Units Glucose Ketones Leukocytes Nitrite Labor Signs Protein Cervic Dilation Cervic Effacement Cervic Station none Type Weight in lbs Pre/Post Dialysis Refused With clothes 126.27343471759 BP Diastolic BP Location Tested BP Systolic BP Type 64 108 sitting Fetus Heart Rate Present A 145 Present Fetus Movement A Yes Comments 1st OB visit. NOB labs and u nity today. Needs pap updated: wants next visit. Confirmation BMI 25.4. Will start LDASA based on risk factors. RTC in 4 weeks. Flowsheet Date 03/06/2023 Licea Score Blood Edema Fundus Height Fundus Units Glucose Ketones Leukocytes Nitrite Labor Signs Protein Cervic Dilation Cervic Effacement Cervic Station Type Weight in lbs Pre/Post Dialysis Refused Weight 132.078771896259 BP Diastolic BP Location Tested BP Systolic BP Type 60 110 Fetus Heart Rate Present A 152 Fetus Movement A Yes Comments MSAFP today. Pap collected. Plan anatomy next visit. Precautions reviewed. Flowsheet Date 04/10/2023 Licea Score Blood Edema Fundus Height Fundus Units Glucose Ketones Leukocytes Nitrite Labor Signs Protein Cervic Dilation Cervic Effacement Cervic Station none none Type Weight in lbs Pre/Post Dialysis Refused With clothes 135.688427446407 BP Diastolic BP Location Tested BP Systolic BP Type 64 108 sitting Fetus Heart Rate Present A 134 Present Fetus Movement A Yes Comments Anatomy completed, EFW 44%, anterior placenta. C/O leg cramps, encouraged magnesium 400mg nightly and/or electrolyte fluid. Refill given on Zofran. RTC in 4 weeks. Flowsheet Date 05/18/2023 Licea Score Blood Edema Fundus Height Fundus Units Glucose Ketones Leukocytes Nitrite Labor Signs Protein Cervic Dilation Cervic Effacement Cervic Station none 32 cm Type Weight in lbs Pre/Post Dialysis Refused With clothes 142.768015078133 BP Diastolic BP Location Tested BP Systolic BP Type 62 110 sitting Fetus Heart Rate Present A 156 Fetus Movement A Yes Comments Complains of discharge with itching. Had called and had cream sent in that she has not yet started. Declines sure swab today. Encouraged to use medication and to return if symptoms not resolved. Plan third trimester labs next visit. PTL/PIH precautions reviewed. Flowsheet Date 06/23/2023 Licea Score Blood Edema Fundus Height Fundus Units Glucose Ketones Leukocytes Nitrite Labor Signs Protein Cervic Dilation Cervic Effacement Cervic Station 35 cm none Other (see comments ) 1+ Type Weight in lbs Pre/Post Dialysis Refused BP Diastolic BP Location Tested BP Systolic BP Type Fetus Heart Rate Present A 148 Fetus Movement A Yes Comments No OB concerns. Feeling ligh tening pains - maternity belt ordered. Occasional dizziness - precautions discussed. F/u in 2 wks w/. Flowsheet Date 06/23/2023 Licea Score Blood Edema Fundus Height Fundus Units Glucose Ketones Leukocytes Nitrite Labor Signs Protein Cervic Dilation Cervic Effacement Cervic Station none trace Type Weight in lbs Pre/Post Dialysis Refused Weight 146.020861761189 BP Diastolic BP Location Tested BP Systolic BP Type 60 112 Fetus Heart Rate Present Fetus Movement Comments Flowsheet Date 07/10/2023 Licea Score Blood Edema Fundus Height Fundus Units Glucose Ketones Leukocytes Nitrite Labor Signs Protein Cervic Dilation Cervic Effacement Cervic Station none Type Weight in lbs Pre/Post Dialysis Refused With clothes 142.300634787432 BP Diastolic BP Location Tested BP Systolic BP Type 60 100 sitting Fetus Heart Rate Present A 140 Fetus Movement A Yes Comments still breech, since last del iver was less than 2 yrs recommend repeat . plans [facility] at [facility]. Flowsheet Date 07/21/2023 Licea Score Blood Edema Fundus Height Fundus Units Glucose Ketones Leukocytes Nitrite Labor Signs Protein Cervic Dilation Cervic Effacement Cervic Station 38 cm none trace Type Weight in lbs Pre/Post Dialysis Refused With clothes 145.702198925294 BP Diastolic BP Location Tested BP Systolic BP Type 66 R arm 106 sitting Fetus Heart Rate Present A 135 Fetus Movement A Yes Comments no ob complaints. GBS collec shayy. RTO in 1 week Flowsheet Date 07/28/2023 Licea Score Blood Edema Fundus Height Fundus Units Glucose Ketones Leukocytes Nitrite Labor Signs Protein Cervic Dilation Cervic Effacement Cervic Station 37 cm none none neg Type Weight in lbs Pre/Post Dialysis Refused With clothes [id number] BP Diastolic BP Location Tested BP Systolic BP Type 60 100 sitting Fetus Heart Rate Present A 132 Present Fetus Movement A Yes Comments No OB complaints. RTC next w paimiut. scheduled. Discsussed FK. Flowsheet Date 08/04/2023 [place]icea Score Blood Edema Fundus Height Fundus Units Glucose Ketones Leukocytes Nitrite Labor Signs Protein Cervic Dilation Cervic Effacement Cervic Station none Type Weight in lbs Pre/Post Dialysis Refused With clothes 145.423811288927 BP Diastolic BP Location Tested BP Systolic BP Type 60 102 sitting Fetus Heart Rate Present A 132 Present Fetus Movement Comments No OB complaints. Discussed Labor precautions and s/s of Pre-E. Flowsheet Date 08/25/2023 Licea Score Blood Edema Fundus Height Fundus Units Glucose Ketones Leukocytes Nitrite Labor Signs Protein Cervic Dilation Cervic Effacement Cervic Station Type Weight in lbs Pre/Post Dialysis Refused Weight 124.507471940919 BP Diastolic BP Location Tested BP Systolic BP Type 62 L arm 119 sitting Fetus Heart Rate Present Fetus Movement Comments Flowsheet Date 09/09/2023 Licea Score Blood Edema Fundus Height Fundus Units Glucose Ketones Leukocytes Nitrite Labor Signs Protein Cervic Dilation Cervic Effacement Cervic Station Type Weight in lbs Pre/Post Dialysis Refused Weight 126.196498387500 BP Diastolic BP Location Tested BP Systolic BP Type 58 L arm 100 sitting Fetus Heart Rate Present Fetus Movement Comments Menstrual History Last Menstrual Date Menses Monthly On Bcp Conception Prior Menses Frequency Hcg Plus Date Menarche Onset Age Genetic Screening And Infection History Question Response Note Thalassemia (Bahraini, Thai, Mediterranean, Or Background): MCV < 80 false Intellectual Disability/Autism false Personal or Family History of Congenital Heart D efect false History of Hepatitis false Muscular Dystrophy false Sickle Cell Disease Or Trait () false Patient Or Partner Has History Of Genital Herpes false Hemophilia Or Other Blood Disorders false Guillermo Disease false Patient's Age Will Be 35 Years Or Older At Estim ated Date of Delivery false If Yes, Agent(s) And Strength/Dosage false Medications (including Suppl ements, Vitamins, Herbs, OTC Drugs), Illicit/Recreational Drugs, Alcohol false Other Structural Defect false Recent Travel History Outside of Country false Maternal Metabolic Disorder (eg, Type 1 Diabetes , PKU) false David-Sachs (eg, Lutheran, Cajun, Hebrew-Afghan) f alse Other Infection History false Henderson's Chorea false Cystic Fibrosis false Recurrent Loss, Or A Stillbirth false Rash Or Viral Illness Since Last Menstrual Perio d false Live With Someone With TB Or Exposed To TB false Mental Retardation/Autism false If Yes, Was Person Tested For Fragile X? false History of HIV false Any Other Genetic History false Hemoglobinopathy Or Carrier false Prior GBS-infected child true Down Syndrome false Other Inherited Genetic Or Chromosomal Disorder false Patient Or Baby's Father Had A Child With Defects Not Listed Above false Personal or Family History o f Neural Tube Defect (Meningomyelocele, Spina Bifida, Or Anencephaly) false History Of STD, Gonorrhea, Chlamydia, HPV, Syphi lis false Delivery Information Delivery Date Delivery Type Labor Anesthesia Weeks Gestation Incision Type Labor Labor Length Hrs Delivered By Post Complications Tubal Sterilization Discharge Date Comments 4 None [facility] 39.5 Low Transvers e Dina Nava MD false Discharge Information Feeding Method Contraceptive Method Maternal HG B and HCT Levels Combination none
--- OUTSIDE RECORDS SUMMARY | 2024-06-26 16:48 | XMS_ITS | Clinical Summary ---
Author Organization [facility] Address [address] [place] [address] Care Team Providers Care Jet Aircraft Servicer Name Role Phone Karina Bates NP Primary Care Provider [phone] Allergies No known active allergies Medications 25/iron [...] (12/12/2021): Added automatically from request for surgery [id number] Medical History Medical History Date Comments Urinary tract infection Social History Tobacco Use Types Packs/Day Years [...] staff should administer the PHQ-9) 0 08/12/2023 [facility] - Occupational Stress [...] things needed for daily living? No 08/12/2023 [place] Depression Scale Answer Date Recorded [place] Depression Scale Total 2 08/14/2023 The thought [...] any time in the past [address] [facility], were you homeless or living in a detention (including now)? No 08/12/2023 Personal Safety Answer Date Recorded Have you ever been in or are you currently in a harmful physical or emotional relationship or is someone making you feel afraid or unsafe? 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 Gender Identity Not on file Sexual Orientation Not on file Obstetrics History Para Term AB IAB SAB Ectopic Multiple Livin g Live Births 2 2 2 0 2 2 Date Outcome GA Total Labor Labor/2nd/3rd Weight Sex Type Anes PTL Kim A1 A5 Name Clin 2021 Term 39w 3d 0h 01m 0h 01m 3.36 kg (7 lb 6.5 oz) M CS-LT ranv Epidu ral,C ombin ed Spina l/Epi dural N Livin g 8 9 TY ANDREW Bryson Thomas, MD Complications: Intolera nce Delivery Location:[facility] Main C ampus ([facility]) 2023 Term 39w 5d 0h 02m 0h 02m 2.96 kg (6 lb 8.4 oz) M C-Sec tion N Livin g 8 9 EsauCia boba Florentin Dill MD Delivery Location:[facility] C ampus ([facility] L AND D PROCEDURE) Last Filed Vital Signs Vital Sign Reading [...] 08/12/2023 7:15 AM CDT Plan of Treatment Health Maintenance Due Date Last Done Comments Cervical Cancer Screening 1992 Hepatitis C Screening 1992 Regular Well Visit/Exam 18-64 01/14/2010 Covid-19 Vaccine ( season) 2023 11/16/2020, 10/25/2020 Depression Screening 08/13/2024 08/14/2023, 07/14/2023, 07/14/2023 Influenza Vaccine (Season Ended) 2024 04/23/2021, 03/21/2020 DTaP/Tdap/Td Vaccine (8 - Td or Tdap) 03/21/2030 03/21/2020, 09/24/2010, 07/17/1997, Additional history exists Hepatitis B Screening Completed 07/24/1993 , 01/08/1993, 1992 Varicella Vaccines Completed 03/21/2020, 09/24/2010 HPV Vaccines Aged Out No longer eligi ble based on patient's age to complete this topic Pneumococcal vaccine <65 Aged Out No longer eligible based on patient's age to complete this topic Insurance CHOICE PLUS [facility] H[facility]/PPO Address: [facility] [address] [place] [address] [facility] PL[facility] CHOICE PLUS [facility] HMO/PPO Address: [address] [address] [place] [address] Advance Directives For more information, please contact: [phone] * Full Code (Latest Code Status on [...] in case of cardiopulmonary arrest Care Teams Jet Aircraft Servicer Relationship Specialty Start Date End Date Karina Bates NP PCP - General Nurse Practitioner 06/29/23
[2024-06-26 17:13] LABS: Basophils Percent Auto 0.5 % (0.2-1.2); Eosinophils Absolute Auto 0.1 K/mm3 (0-0.3); Eosinophils Percent Auto 1.5 % (0-4.4); Hematocrit 37.2 % (37.0-47.0); Hemoglobin 12.1 g/dL (12.0-15.0); Immature Granulocyte Absolute 0.01 K/mm3 (0.00-0.031); Immature Granulocyte Percent A 0.2 % (0-0.5); Lymphocytes Absolute Auto 1.85 K/mm3 (0.9-3.2); Lymphocytes Percent Auto 28.1 % (18.3-44.2); Mean Corpuscular HGB Conc 32.5 g/dl (32-36); Mean Corpuscular Hemoglobin 29.3 pg (26-34); Mean Corpuscular Volume 90.1 fl (80-100); Mean Platelet Volume 10.3 fl (7.4-10.4); Monocytes Absolute Auto 0.5 K/mm3 (0.1-0.6); Neutrophils Absolute Auto 4.1 K/mm3 (1.3-6.7); Neutrophils Percent Auto 61.7 % (45.5-73.1); Platelet Count Result 295 k/mm3 (150-375); Red Blood Count 4.13 M/mm3 (4.2-5.4); Red Cell Distribution Width 12.1 % (11.5-14.5); White Blood Count 6.6 K/mm3 (4.5-10.0)
--- OUTSIDE RECORDS SUMMARY | 2024-06-26 17:17 | XMS_ITS | Clinical Summary ---
Author Organization [facility] Address [address] [place] [address] Care Team Providers Care Tinning Equipment Tender Name Role Phone Karina Bates NP Primary Care Provider [phone] Allergies No known active allergies Medications 25/iron [...] (12/12/2021): Added automatically from request for surgery [id number] Medical History Medical History Date Comments Urinary [...] staff should administer the PHQ-9) 0 08/12/2023 [facility] - [...] things needed for daily living? No 08/12/2023 [place] Depression Scale Answer Date Recorded [place] Depression Scale Total 2 08/14/2023 The thought [...] any time in the past 12 m [facility], were you homeless or living in a long-term (including now)? No 08/12/2023 Personal Safety Answer Date Recorded Have you ever been in or are you currently in a harmful physical or emotional relationship or is someone making you feel afraid or unsafe? 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 Gender Identity Not on file Sexual Orientation [...] Bryson Thomas, MD Complications: Intolera nce Delivery Location:[facility] Main C ampus ([facility]) 2023 Term 39w 5d 0h 02m 0h 02m 2.96 kg (6 lb 8.4 oz) M C-Sec tion N Livin g 8 9 EsauCia boba Florentin Dill MD Delivery Location:[facility] C ampus ([facility] L AND D PROCEDURE) Last Filed Vital [...] to complete this topic Insurance CHOICE PLUS [facility] PLAN [facility] CHOICE PLUS Advance Directives For more information, please contact: [phone] * Full Code (Latest Code Status on [...] in case of cardiopulmonary arrest Care Teams Tinning Equipment Tender Relationship Specialty Start Date End Date Karina Bates NP PCP - General Nurse Practitioner 06/29/23
--- OUTSIDE RECORDS SUMMARY | 2024-06-26 17:17 | XMS_ITS | Referral Summary ---
Author Organization [facility] Address [address] [place] [address] Care Team Providers Care Waste Hand Name Role Phone Karina Bates NP Primary Care Provider [phone] Allergies No known active allergies Medications 25/iron [...] (12/12/2021): Added automatically from request for surgery [id number] Social History Tobacco Use Types Packs/Day Years [...] staff should administer the PHQ-9) 0 08/12/2023 [facility] - Occupational [...] things needed for daily living? No 08/12/2023 [place] Depression Scale Answer Date Recorded [place] Depression Scale Total 2 08/14/2023 The thought [...] any time in the past 12 m [facility], were you homeless or living in a half-way (including now)? No 08/12/2023 Personal Safety Answer Date Recorded Have you ever been in or are you currently in a harmful physical or emotional relationship or is someone making you feel afraid or unsafe? 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
--- OUTSIDE RECORDS SUMMARY | 2024-06-26 17:17 | XMS_ITS | Clinical Summary ---
Author Organization [facility] Address [address] [place] [address] Care Team Providers Care Cable Stretcher And Tester Name Role Phone Unavailable Primary Care Provider Unavailabl e Source Comments [facility],non-owned Affiliates and Associated Physician Practices is amultiple site organization consisting of ambulatory clinics and hospital sitesin [place]. This disclosure is being madepursuant to the Care Everywhere program and may not contain all information available regarding this patient. Last updated 17.[facility] [place] Social History Tobacco Use Types Packs/Day Years [...] patient's age to complete this topic Insurance [facility] MEDICAID
[2024-06-26 17:27] LABS: Alanine Aminotransferase 36 U/L (6-35); Albumin Level 4.3 g/dL (3.5-5.1); Alkaline Phosphatase 72 U/L (38-126); Anion Gap 10 mmol/L (4-12); Aspartate Amino Transferase 29 U/L (14-36); Bilirubin,Total 0.6 mg/dL (0.2-1.3); Blood Urea Nitrogen 16 mg/dL (7-17); Calcium 9.1 mg/dL (8.4-10.2); Carbon Dioxide 23 mmol/L (22-30); Chloride 106 mmol/L (98-107); Estimated Glomerular Filt Rate > 60; Glucose 94 mg/dL (65-110); Potassium 4.4 mmol/L (3.4-5.0); Sodium 139 mmol/L (137-145)
--- NOTE | 2024-06-26 17:29 | ED_ITS ---
HPI - General Adult General Chief complaint: Abdominal Pain Stated complaint: L lateral side pain Time Seen by Provider: 06/26/24 16:57 History of Present Illness HPI narrative: 34-year-old female presents emergency department for evaluation for left flank pain. Does have a prior history of ureteral calculi, patient last passed a kidney stone in December, patient did not have follow-up with Urology at that time. Patient was able to pass the stone on her own. Patient began having worsening flank pain a few days ago. Patient has been taking her ketorolac and states this helps. Since the pain was persisting patient was concerned and wanted to be evaluated. Patient does describe left flank pain that does not radiate down to her left lower quadrant. Patient denies any blood in her urine. Patient denies any associated nausea vomiting or diarrhea. Related Data Allergies Allergy/AdvReac Type Severity Reaction Status Date / Time No Known Allergies Allergy Verified 12/19/23 18:40 Review of Systems 2 Review of Systems: All systems reviewed & are unremarkable except as noted in HPI and below PMFSH Past Medical History Medical History Patient denies significant medical history Social History Social History Smoking status: Never smoker Exam 2 Narrative: APPEARANCE: Well appearing, no pain, no distress, well-nourished. HEAD: normocephalic, atraumatic. EYES: PERRLA/EOMI, conjunctivae clear. NOSE: Normal no drainage EARS:TMS clear with good light reflex. THROAT: Pharynx clear, no exudate. NECK: Supple. No adenopathy, no masses. RESPIRATORY: Airway patent, respirations nonlabored. Clear to auscultation bilaterally, no rales, rhonchi, wheezing. CARDIOVASCULAR: Regular rate and rhythm without murmurs rubs or gallops. ABDOMINAL: Left CVA tenderness MUSCULOSKELETAL: Moves all extremities. Strength/ROM intact, No edema, No calf tenderness. NEURO: Alert. Cranial nerves II through XII intact. Good gait. Good coordination SKIN: Warm, dry. Normal Color Course Vital Signs Vital signs: Vital Signs Temperature 97.6 F 06/26/24 16:46 Pulse Rate 69 06/26/24 16:46 Respiratory Rate 16 06/26/24 16:46 Blood Pressure 134/88 06/26/24 16:46 Pulse Oximetry 100 06/26/24 16:46 Temperature 97.6 F 06/26/24 16:46 Pulse Rate 79 06/26/24 19:35 Respiratory Rate 16 06/26/24 19:35 Blood Pressure 119/82 06/26/24 19:35 Pulse Oximetry 99 06/26/24 19:35 Medical Decision Making MDM Narrative Medical decision making narrative: 34-year-old female with history of uterosacral I presents emergency department for evaluation for left CVA tenderness. CT scan does show a kidney stone and the left UPJ. Patient was provided medications for pain control and follow-up with Urology. Patient's pain was walking trying to the emergency department. All questions concerns were addressed. Patient was comfortable the plan for discharge and close follow-up. Differential Diagnosis Differential Diagnosis: UTI, ureteral calculi, a kidney stone, or renal call Vital Signs Vital Signs: Vital Signs Temperature 97.6 F 06/26/24 16:46 Pulse Rate 69 06/26/24 16:46 Respiratory Rate 16 06/26/24 16:46 Blood Pressure 134/88 06/26/24 16:46 Pulse Oximetry 100 06/26/24 16:46 Temperature 97.6 F 06/26/24 16:46 Pulse Rate 79 06/26/24 19:35 Respiratory Rate 16 06/26/24 19:35 Blood Pressure 119/82 06/26/24 19:35 Pulse Oximetry 99 06/26/24 19:35 Lab Data Lab results reviewed: Yes I reviewed the patient's lab results. 06/26/24 17:07 06/26/24 17:07 Labs: Lab Results 06/26/24 06/26/24 06/26/24 Range/Units 17:07 17:29 17:33 WBC 6.6 (4.5-10.0) K/mm3 RBC 4.13 L (4.2-5.4) M/mm3 Hgb 12.1 (12.0-15.0) g/dL Hct 37.2 (37.0-47.0) % MCV 90.1 (80-100) fl MCH 29.3 (26-34) pg MCHC 32.5 (32-36) g/dl RDW 12.1 (11.5-14.5) % Plt Count 295 (150-375) k/mm3 MPV 10.3 (7.4-10.4) fl Immature Gran % (Auto) 0.2 (0-0.5) % Neut % (Auto) 61.7 (45.5-73.1) % Lymph % (Auto) 28.1 (18.3-44.2) % [place] % (Auto) 8.0 (2.6-8.5) % Eos % (Auto) 1.5 (0-4.4) % Baso % (Auto) 0.5 (0.2-1.2) % Lymph # (Auto) 1.85 (0.9-3.2) K/mm3 [place] # (Auto) 0.5 (0.1-0.6) K/mm3 Eos # (Auto) 0.1 (0-0.3) K/mm3 Baso # (Auto) 0.0 (0.0-0.1) K/mm3 Abs Immat Gran (auto) 0.01 (0.00-0.031) K/mm3 Absolute Neuts (auto) 4.1 (1.3-6.7) K/mm3 Absolute Nucleated RBC 0.000 (0.0-0.012) K/mm3 Nucleated RBC % 0.0 (0.0-0.2) % Sodium 139 (137-145) mmol/L Potassium 4.4 (3.4-5.0) mmol/L Chloride 106 (98-107) mmol/L Carbon Dioxide 23 (22-30) mmol/L Anion Gap 10 (4-12) mmol/L BUN 16 (7-17) mg/dL Creatinine 0.96 (0.7-1.0) mg/dL Estim Creat Clear Calc Not Reportable Estimated GFR > 60 (59 - ) Glucose 94 (65-110) mg/dL Calcium 9.1 (8.4-10.2) mg/dL Total Bilirubin 0.6 (0.2-1.3) mg/dL AST 29 (14-36) U/L ALT 36 H (6-35) U/L Alkaline Phosphatase 72 (38-126) U/L Total Protein 8.0 (6.3-8.2) g/dL Albumin 4.3 (3.5-5.1) g/dL Urine Color Yellow (Yellow) Urine Appearance Clear (Clear) Urine pH 7.0 (5.0-9.0) Ur Specific [place] 1.035 (1.001-1.035) Urine Protein 1+ H (Negative) mg/dL Urine Glucose (UA) Negative (Negative) mg/dL Urine Ketones Trace H (Negative) mg/dL Ur Blood (Man) 3+ H (Negative) Urine Nitrate Negative (Negative) Urine Bilirubin Negative (Negative) Urine Urobilinogen 1.0 (<2.0) mg/dL Leukocyte Esterase Rfl 1+ H (Negative) TALI/UL Urine RBC 21-50 H (0-2) /hpf Urine WBC 11-20 H (0-3) /hpf Ur Squamous Epith Cells Moderate (Few) /hpf Urine Bacteria Rare /hpf Urine Casts 0-2 POC Urine HCG, Qual Negative (Negative) Discharge Plan Discharge Clinical Impression: Calculus of renal pelvis Patient Disposition: Home Condition: Stable Instructions: Antibiotic Form, Kidney Stones (ED), How to Strain Your Urine (ED), Flank Pain (ED) Additional Instructions: Home ketorolac for pain medication. Flomax as directed. [place] as needed for additional pain control. Zofran as needed for nausea control. Call the urology office in the morning. Your CT scan showed a 10 x 6 mm kidney stone in the left renal pelvis Patient Language: Vietnamese Prescriptions: New tamsulosin [Flomax] 0.4 mg capsule 0.4 mg PO DAILY 14 Days Qty: 14 0RF hydrocodone-acetaminophen 5-325 mg tablet 1 tablet PO Q12H PRN (Reason: pain) Qty: 14 0RF ondansetron 4 mg tablet,disintegrating 4 mg PO Q8H PRN (Reason: nausea and vomiting) Qty: 14 0RF No Action tamsulosin [Flomax] 0.4 mg capsule 0.4 mg PO DAILY Qty: 20 0RF ketorolac 10 mg tablet 10 mg PO Q8H PRN (Reason: pain) 5 Days Qty: 20 0RF Rx Instructions: maximum total duration of 5 days from all oral, intranasal, or parenteral formulations Follow-up/Referrals: Stephen Mckee MD [Physician] - PHYSICIAN NOT ON STAFF,NONSTAFF [Primary Care Provider] -
[2024-06-26 17:35] LABS: BEDSIDEPREGUCG Negative (Negative)
[2024-06-26 17:58] VITALS: BP 114/68; PULSE 74; RESP 16; O2SAT 100
[2024-06-26 18:01] VITALS: BP 112/74; O2SAT 99
[2024-06-26 18:09] LABS: Add Urine Microscopic? YES; Appearance Urine Clear (Clear); Bacteria Urine Rare /hpf; Bilirubin Urine Negative (Negative); Blood Urine 3+ (Negative); Color Urine Yellow (Yellow); Glucose Urine UA Negative (Negative); Ketones Urine Trace mg/dL (Negative); Leukocyte Esterase Ur 1+ LEU/UL (Negative); Nitrate Urine Negative (Negative); Non Pathogenic Casts 0-2; Protein Urine 1+ mg/dL (Negative); RBC Urine 21-50 /hpf (0-2); Specific Grav Ur 1.035 (1.001-1.035); Squamous Epithelial Cell Urine Moderate /hpf (Few)
[2024-06-26 18:16] VITALS: BP 133/77; O2SAT 100
[2024-06-26 18:32] VITALS: BP 129/68; O2SAT 100
[2024-06-26 19:35] VITALS: BP 119/82; PULSE 79; RESP 16; O2SAT 99
== END 2024-06-26 19:34 | disposition home or self-care (01) ==
PROVIDERS: Emergency Provider Emergency Medicine
DX: N13.9 Obstructive and reflux uropathy, unspecified (principal); N20.0 Calculus of kidney; Z87.442 Personal history of urinary calculi
CPT/HCPCS: 36415; 74176; 80053; 81001; 81025; 85025; 99284

== ENCOUNTER 2024-11-16 04:45 | Emergency (ER) | payer SELFPAY ==
--- NOTE | ~2024-11-16 | CT_ITS ---
EXAMINATION: CT abdomen pelvis wo con DATE: 11/16/2024 05:31 INDICATION: Left-sided flank pain TECHNIQUE: Computed tomography (CT) of the abdomen and pelvis was performed without intravenous contrast. Automated exposure control and iterative reconstruction technique were employed. The dose-length product was 191.39 mGy-cm. COMPARISON: None FINDINGS: Lung bases are clear. Heart size is normal. No pericardial or pleural effusion. Liver, spleen, pancreas and bilateral adrenal glands are normal. There are gallstones within the otherwise normal appearing gallbladder with no wall thickening or pericholecystic inflammatory stranding to suggest acute chol ecystitis. Bilateral nephrolithiasis including 4 nonobstructing stones at the right kidney the largest measuring 5-6 mm. There is an obstructing 10 x 8 x 5 mm stone at the left ureteropelvic junction with mild left hydronephrosis. There are 4 additional stones measuring up to 7 mm in the lower pole of the left kidney. 1.5 cm left renal cyst. Bladder, anteverted uterus and bilateral adnexa are unremarkable. Bowels including the appendix are normal. Trace amount of likely physiologic free fluid in the pelvis. No pathologically enlarged abdominal or pelvic lymphadenopathy. Bones are unremarkable. IMPRESSION: 1. Bilateral nephrolithiasis with obstructing 2 mm stone at the left ureteropelvic junction with mild left hydronephrosis. 2. Cholelithiasis. Reviewed, dictated and finalized at location A. IMPRESSION: 1. Bilateral nephrolithiasis with obstructing 2 mm stone at the left ureteropel daniel junction with mild left hydronephrosis. 2. Cholelithiasis.
[2024-11-16 04:50] VITALS: BP 127/77; PULSE 89; RESP 14; TEMP 37; O2SAT 100
[2024-11-16 04:55] VITALS: BP 127/77; PULSE 90; RESP 14; O2SAT 100
[2024-11-16 05:01] LABS: BEDSIDEPREGUCG Negative (Negative)
[2024-11-16 05:09] LABS: Hematocrit 41.4 % (37.0-47.0); Hemoglobin 13.5 g/dL (12.0-15.0); Immature Granulocyte Percent A 0.2 % (0-0.5); Lymphocytes Absolute Auto 2.38 K/mm3 (0.9-3.2); Mean Corpuscular HGB Conc 32.6 g/dl (32-36); Mean Corpuscular Hemoglobin 29.8 pg (26-34); Mean Corpuscular Volume 91.4 fl (80-100); Nucleated Red Blood Cells Absolute Auto 0.000 K/mm3 (0.0-0.012); Nucleated Red Blood Cells Perc 0.0 % (0.0-0.2); Platelet Count Result 301 k/mm3 (150-375); Red Blood Count 4.53 M/mm3 (4.2-5.4); White Blood Count 5.6 K/mm3 (4.5-10.0)
--- NOTE | 2024-11-16 05:13 | ED_ITS ---
HPI - General Adult General Chief complaint: Abdominal Pain Stated complaint: Left Flank Pain Time Seen by Provider: 11/16/24 05:03 History of Present Illness HPI narrative: This is a pleasant 34-year-old female presenting for left flank pain. Pain woke her from sleep at 3:00 a.m.. Is a crampy pain in her left flank radiating her left lower abdomen. Feels like previous kidney stone she has had. She took Toradol with no relief. She has had any nausea vomiting. She does not have any urinary symptoms. No fevers. Related Data Allergies Allergy/AdvReac Type Severity Reaction Status Date / Time No Known Allergies Allergy Verified 11/16/24 04:58 [facility] Past Medical History Medical History Patient denies significant medical history Social History Social History Smoking status: Never smoker Exam 2 Narrative: APPEARANCE: No apparent distress. Head: atraumatic. EYES: EOMI, NOSE: Atraumatic NECK: Trachea midline RESPIRATORY: No increased rate of breathing clear to auscultation CARDIOVASCULAR: RRR, ABDOMINAL: Non-distended soft nontender no CVA tenderness MUSCULOSKELETAl: No obvious deformities NEURO: Alert. Moving 4/4 extremities SKIN:: Warm, dry. Normal color PSYCHIATRIC: Normal affect Course Vital Signs Vital signs: Vital Signs Temperature 98.6 F 11/16/24 04:50 Pulse Rate 89 11/16/24 04:50 Respiratory Rate 14 11/16/24 04:50 Blood Pressure 127/77 11/16/24 04:50 Pulse Oximetry 100 11/16/24 04:50 Oxygen Delivery Room Air 11/16/24 04:50 Temperature 98.6 F 11/16/24 04:50 Pulse Rate 78 11/16/24 06:01 Respiratory Rate 17 11/16/24 06:01 Blood Pressure 128/92 H 11/16/24 06:01 Pulse Oximetry 100 11/16/24 06:01 Oxygen Delivery Room Air 11/16/24 04:50 Medical Decision Making MDM Narrative Medical decision making narrative: -Course: 34-year-old female presenting with left-sided flank pain. Patient used ketorolac at home. Patient given Tylenol/Dilaudid for pain control. laboratory studies within normal limits. CT showed a 9 mm x 5 mm stone in the renal pelvis with mild hydronephrosis. Urine with 11-20 white blood cells and +1 leuk esterase, - nitrites. Patient does not have any urinary symptoms. No white count or fevers. Patient is not septic. And she is well-appearing with stable vital signs. She will be given 1 dose of IV ceftriaxone. Discussed admission versus discharge but patient is comfortable going home appropriate medications and returning if she develops fevers severe pain feel her condition getting worse. Patient has been given follow-up with urology. -DDX includes but is not limited to: Kidney stone, UTI, pyelo muscle strain Vital Signs Vital Signs: Vital Signs Temperature 98.6 F 11/16/24 04:50 Pulse Rate 89 11/16/24 04:50 Respiratory Rate 14 11/16/24 04:50 Blood Pressure 127/77 11/16/24 04:50 Pulse Oximetry 100 11/16/24 04:50 Oxygen Delivery Room Air 11/16/24 04:50 Temperature 98.6 F 11/16/24 04:50 Pulse Rate 78 11/16/24 06:01 Respiratory Rate 17 11/16/24 06:01 Blood Pressure 128/92 H 11/16/24 06:01 Pulse Oximetry 100 11/16/24 06:01 Oxygen Delivery Room Air 11/16/24 04:50 Lab Data 11/16/24 05:01 11/16/24 05:01 Labs: Lab Results 11/16/24 11/16/24 Range/Units 04:59 05:01 WBC 5.6 (4.5-10.0) K/mm3 RBC 4.53 (4.2-5.4) M/mm3 Hgb 13.5 (12.0-15.0) g/dL Hct 41.4 (37.0-47.0) % MCV 91.4 (80-100) fl MCH 29.8 (26-34) pg MCHC 32.6 (32-36) g/dl RDW 12.2 (11.5-14.5) % Plt Count 301 (150-375) k/mm3 MPV 10.0 (7.4-10.4) fl Immature Gran % (Auto) 0.2 (0-0.5) % Neut % (Auto) 45.6 (45.5-73.1) % Lymph % (Auto) 42.9 (18.3-44.2) % [place] % (Auto) 9.2 H (2.6-8.5) % Eos % (Auto) 1.6 (0-4.4) % Baso % (Auto) 0.5 (0.2-1.2) % Lymph # (Auto) 2.38 (0.9-3.2) K/mm3 [place] # (Auto) 0.5 (0.1-0.6) K/mm3 Eos # (Auto) 0.1 (0-0.3) K/mm3 Baso # (Auto) 0.0 (0.0-0.1) K/mm3 Abs Immat Gran (auto) 0.01 (0.00-0.031) K/mm3 Absolute Neuts (auto) 2.5 (1.3-6.7) K/mm3 Absolute Nucleated RBC 0.000 (0.0-0.012) K/mm3 Nucleated RBC % 0.0 (0.0-0.2) % Sodium 140 (137-145) mmol/L Potassium 4.0 (3.4-5.0) mmol/L Chloride 107 (98-107) mmol/L Carbon Dioxide 22 (22-30) mmol/L Anion Gap 11 (4-12) mmol/L BUN 14 (7-17) mg/dL Creatinine 0.92 (0.7-1.0) mg/dL Estim Creat Clear Calc Not Reportable Estimated GFR > 60 (59 - ) Glucose 98 (65-110) mg/dL Calcium 8.9 (8.4-10.2) mg/dL Total Bilirubin 0.4 (0.2-1.3) mg/dL AST 37 H (14-36) U/L ALT 48 H (6-35) U/L Alkaline Phosphatase 72 (38-126) U/L Total Protein 7.7 (6.3-8.2) g/dL Albumin 4.3 (3.5-5.1) g/dL Lipase 154 (23-300) U/L Urine Color Yellow (Yellow) Urine Appearance Cloudy H (Clear) Urine pH 7.5 (5.0-9.0) Ur Specific [place] 1.024 (1.001-1.035) Urine Protein Trace (Negative) mg/dL Urine Glucose (UA) Negative (Negative) mg/dL Urine Ketones Negative (Negative) mg/dL Ur Blood (Man) Negative (Negative) Urine Nitrate Negative (Negative) Urine Bilirubin Negative (Negative) Urine Urobilinogen 1.0 (<2.0) mg/dL Leukocyte Esterase Rfl 1+ H (Negative) TALI/UL Urine RBC 3-5 H (0-2) /hpf Urine WBC 11-20 H (0-3) /hpf Ur Squamous Epith Cells Few (Few) /hpf Urine Bacteria Rare /hpf Urine Casts 0-2 POC Urine HCG, Qual Negative (Negative) Discharge Plan Discharge Clinical Impression: Kidney stone Patient Disposition: Home Condition: Stable Instructions: Antibiotic Form, Kidney Stones (ED) Additional Instructions: You were seen in the emergency department for a kidney stone. Please use Motrin/Tylenol for pain. Use oxycodone for breakthrough pain. Use Zofran for nausea. Use Flomax to help pass the stone. Complete the abx as instructed. Please follow-up with your Urologist in 7 days for further management. Please return to the emergency department if you develop severe pain, fevers or intractable nausea and vomiting. Patient Language: [place] Prescriptions: New acetaminophen 500 mg tablet 1,000 mg PO TID PRN (Reason: ladonna) 7 Days Qty: 42 0RF tamsulosin [Flomax] 0.4 mg capsule 0.4 mg PO DAILY Qty: 30 0RF ketorolac 10 mg tablet 10 mg PO Q8H Qty: 30 0RF Rx Instructions: maximum total duration of 5 days from all oral, intranasal, or parenteral formulations ondansetron 4 mg tablet,disintegrating 4 mg PO Q8H PRN (Reason: nausea and vomiting) Qty: 30 0RF oxycodone 5 mg tablet 5 mg PO Q4H PRN (Reason: pain) Qty: 14 0RF cefdinir 300 mg capsule 300 mg PO Q12H Qty: 14 0RF No Action tamsulosin [Flomax] 0.4 mg capsule 0.4 mg PO DAILY Qty: 20 0RF ketorolac 10 mg tablet 10 mg PO Q8H PRN (Reason: pain) 5 Days Qty: 20 0RF Rx Instructions: maximum total duration of 5 days from all oral, intranasal, or parenteral formulations tamsulosin [Flomax] 0.4 mg capsule 0.4 mg PO DAILY 14 Days Qty: 14 0RF hydrocodone-acetaminophen 5-325 mg tablet 1 tablet PO Q12H PRN (Reason: pain) Qty: 14 0RF ondansetron 4 mg tablet,disintegrating 4 mg PO Q8H PRN (Reason: nausea and vomiting) Qty: 14 0RF Follow-up/Referrals: Yaritza Mendes MD [Physician, Urology] - 1 Week Referral Note: Kidney stone PHYSICIAN NOT ON STAFF,NONSTAFF [Non-Staff]
[2024-11-16 05:15] LABS: Add Urine Microscopic? YES; Appearance Urine Cloudy (Clear); Glucose Urine UA Negative (Negative); Leukocyte Esterase Ur 1+ LEU/UL (Negative); Nitrate Urine Negative (Negative); Non Pathogenic Casts 0-2; Specific Grav Ur 1.024 (1.001-1.035)
[2024-11-16] MEDS: ACETAMINOPHEN 500 MG TABLET 1000 MG PO (05:18)
[2024-11-16] MEDS: HYDROmorphone HCL INJ (*CRX) 1 MG/ML SYR 0.5 MG IV PUSH (05:21)
--- NOTE | 2024-11-16 05:29 | PC.NURSE ---
Pt refuses second 500 mg tylenol. aware.
[2024-11-16 05:35] LABS: Alanine Aminotransferase 48 U/L (6-35); Albumin Level 4.3 g/dL (3.5-5.1); Alkaline Phosphatase 72 U/L (38-126); Anion Gap 11 mmol/L (4-12); Aspartate Amino Transferase 37 U/L (14-36); Bilirubin,Total 0.4 mg/dL (0.2-1.3); Blood Urea Nitrogen 14 mg/dL (7-17); Calcium 8.9 mg/dL (8.4-10.2); Carbon Dioxide 22 mmol/L (22-30); Chloride 107 mmol/L (98-107); Estimated Glomerular Filt Rate > 60; Glucose 98 mg/dL (65-110); Lipase 154 U/L (23-300); Potassium 4.0 mmol/L (3.4-5.0); Sodium 140 mmol/L (137-145); Total Protein 7.7 g/dL (6.3-8.2)
[2024-11-16 05:36] VITALS: BP 117/64; PULSE 69; RESP 16; O2SAT 96
[2024-11-16 05:46] VITALS: BP 127/88; PULSE 78; RESP 18; O2SAT 99
[2024-11-16 06:01] VITALS: BP 128/92; PULSE 78; RESP 17; O2SAT 100
[2024-11-16] MEDS: cefTRIAXone 1 GM in SODIUM CHLORIDE 0.9% IV 50 ML 100 ML IVPB (06:09)
[2024-11-16 06:55] VITALS: BP 112/80; PULSE 65; RESP 16; O2SAT 97
== END 2024-11-16 06:57 | disposition home or self-care (01) ==
PROVIDERS: Emergency Provider Emergency Medicine
DX: N13.2 Hydronephrosis with renal and ureteral calculous obstruction (principal); Z87.442 Personal history of urinary calculi; K80.20 Calculus of gallbladder without cholecystitis without obstruction
CPT/HCPCS: 36415; 74176; 80053; 81001; 81025; 83690; 85025; 87086; 96365; 96375; 99284; A9270; J0696; J1171